=== PATIENT | female | born 1990 | race Caucasian/White ===

== ENCOUNTER 2018-02-23 12:50 | Emergency (ER) | payer OTHER, MEDICAID, SELFPAY ==
[2018-02-23 12:54] VITALS: BP 110/60; PULSE 87; RESP 16; TEMP 36.5; O2SAT 98
--- NOTE | 2018-02-23 13:20 | DI.RAD_ITS ---
SYMPTOMS/DIAGNOSIS: COUGH X 3 WEEKS PA AND LATERAL CHEST: The heart is normal in size. The lungs are clear. The mediastinal structures and pleura appear intact. CONCLUSION: Normal chest.
--- NOTE | 2018-02-23 13:23 | W.ED.GENAD ---
Discharge Plan Disposition Patient Disposition: HOME Condition: Fair Discharge Details Chief Complaint: RespSymp Clinical Impression: Cough Primary Care Provider: Quinn Rivero ED Provider: Tabitha Hilario Home Meds and New Rx's Prescriptions: New azithromycin 250 mg tablet See Label Instructions .ROUTE .COMPLEX Qty: 6 RF: 0 prednisone 20 mg tablet 40 mg PO DAILY Qty: 10 RF: 0 No Action No Known Home Meds RF: 0 Discharge Instructions Instructions: Acute Cough (ED) Additional Instructions: Encourage hydration. Please take prednisone and azithromycin as prescribed. Try to take the steroids in the morning and use may cause you to have difficulty sleeping at night. Even if symptoms improve please take the entire course. Please follow-up with primary care for reevaluation in 1 week if symptoms have not completely resolved. If you develop difficulty breathing, shortness of breath, fevers or other new/worsening symptoms please seek care urgently once again. Tylenol and/or ibuprofen as needed for discomfort Referrals: Quinn Rivero MD [Primary Care Provider] - Discharge Data Discharge Date/Time-TO BE ENTERED AT DEPARTURE: 02/23/18 14:23 Medical Decision Making Patient is a 27-year-old female presenting today with chief complaint of cough times 3 weeks. She reports the cough is progressive and worsening. Cough is worse at night. Cobblestoning was noted on exam. She is denying any congestion, rhinorrhea. No sore throat or ear pain. Patient is currently afebrile, vital signs within normal limits. She appears nontoxic. Patient is also endorsing some pleuritic chest pain particularly with cough. Denies any shortness of breath. Cough has been nonproductive. No GI upset. Patient has Mirena IUD placed. Lungs are clear on exam. Plan to obtain chest x-ray given the longevity of her cough. CXR reviewed by myself and radiologist with no acute cardiopulmonary process noted. Discussed findings with the patient. This is likely associated with inflammatory process and pleuritis. However, as the cough has been increasing and patient has been feeling more fatigued I feel that treating with antibiotics at this time would be appropriate. Patient will be treated with prednisone and azithromycin. Encourage hydration. She was given strict return precautions. Advised follow-up with primary care in 1 week for reevaluation. We discussed possible side effects to the medications. All of her questions and concerns were addressed and she is in agreement with this plan HPI General Mode of arrival: ambulatory. Date/Time Provider Initiated Documentation: 02/23/18 13:12. Limitations to Documentation: no limitations. Information obtained by: patient. History of Present Illness 27 year old F presents to the emergency department with the chief complaint of Cough, described as moderate, Quality is described as aching (Patient reports discomfort with cough), and is localized to the chest. Patient reports no radiation; denies radiation to back. Patient started experiencing this week(s) (3) and it has been constant (coughing worse at night). No relieving factors improve symptom(s), No exacerbating factors reported . Patient notes headaches (reports she can have ISABEL associated with coughing); denies cough, diaphoresis, fever/chills, loss of appetite, nausea/vomiting, rash and shortness of breath. Patient did receive the following treatments prior to arrival, none Related Data Home Medications Medication Instructions Recorded Confirmed Unknown [No Known Home Meds] 02/23/18 02/23/18 azithromycin See Label Instructions .ROUTE 02/23/18 .COMPLEX #6 tab prednisone 40 mg PO DAILY #10 tab 02/23/18 Previous Rx's Medication Instructions Recorded azithromycin See Label Instructions .ROUTE 02/23/18 .COMPLEX #6 tab prednisone 40 mg PO DAILY #10 tab 02/23/18 Allergies Allergy/AdvReac Type Severity Reaction Status Date / Time No Known Allergies Allergy Unverified 02/23/18 12:58 General Stated Complaint: RespSymp DARRYN: 4 Review of Systems Constitutional Reports as per HPI and Reports headache(s) ENT Denies otalgia, Reports headache(s), Denies hoarseness, Denies nasal congestion, Denies post nasal drip, Denies sinus pain, Denies sinus pressure and Denies sore throat Cardiovascular Reports as per HPI, Reports chest pain (only with coughing), Denies chest pain at rest, Denies chest pain with activity, Denies syncope, Denies pedal edema, Denies dyspnea and Denies dyspnea on exertion Respiratory Reports as per HPI, Reports cough, Denies hemoptysis, Reports pain with cough, Denies dyspnea and Denies dyspnea on exertion Gastrointestinal Denies change in bowel habits, Denies diarrhea, Denies nausea and Denies vomiting Genitourinary Denies system reviewed and no additional complaints, except as docu (denies change in urinary habits) Integumentary/Breasts Denies rash Neurologic Denies syncope and Reports headache(s) PFSH Family History Father No problems noted. Mother Essential hypertension Mental disorder Social History Smoking/Tobacco Use Status: Former Tobacco Use Exam Const General: cooperative, healthy appearing, comfortable, no acute distress, well developed and well groomed Nutritional Appearance: average body habitus and well nourished Orientation: alert and awake [facility] Head: normal to inspection, normocephalic and atraumatic Ears: hearing grossly normal bilaterally, external ears normal and TM's normal bilaterally General nose exam: external nose normal and nares normal Face and sinus: normal facial exam and sinuses nontender Mouth: oral mucosae normal, lip normal, tongue normal and no trismus Teeth and gingiva: dentition normal Throat: posterior oropharynx abnormal (cobblestoning noted), tonsils normal, uvula midline and no peritonsillar masses Eyes General: appearance normal, both eyes and all related structures Neck Neck: normal visual inspection and no lymphadenopathy Resp Effort & Inspection: normal respiratory effort, able to speak in complete sentences and no respiratory distress Auscultation: clear to auscultation bilaterally, no rales, no rhonchi and no wheezes Cardio Rate: regular rate Rhythm: regular rhythm Heart Sounds: S1 normal and S2 normal Skin General skin exam: no rashes or lesions noted Lesions: no lesions Rashes: no rashes Neuro General: alert and awake Cognition: normal cognition Speech: speech normal Gait: normal gait Extrem General: no pedal edema and no calf tenderness Psych Appearance: grossly normal and well kempt Mental Status: mental status grossly normal Speech and Movement: speech and movement normal Mood: congruent mood Course Vital Signs Temperature 36.5 C 02/23/18 12:54 Pulse 87 02/23/18 12:54 Respiratory Rate 16 02/23/18 12:54 Blood Pressure 110/60 02/23/18 12:54 Pulse Oximetry 98 02/23/18 12:54 Temperature 36.5 C 02/23/18 12:54 Temperature Source Skin 02/23/18 12:54 Pulse 87 02/23/18 12:54 Respiratory Rate 16 02/23/18 12:54 Respiratory Effort 02/23/18 13:04 Respiratory Depth Normal 02/23/18 13:04 Blood Pressure 110/60 02/23/18 12:54 Blood Pressure Position Sitting 02/23/18 12:54 Pulse Oximetry 98 02/23/18 12:54 Oxygen Delivery Method Room Air 02/23/18 12:54 Oxygen Flow Rate 0 02/23/18 12:54 Pain Level 2 02/23/18 12:54
--- NOTE | 2018-02-23 13:26 | ED.GENADUL_ITS ---
Discharge Plan Disposition Patient Disposition: HOME Condition: Fair Discharge Details Chief Complaint: RespSymp Clinical Impression: Cough Primary Care Provider: Quinn Rivero ED Provider: Tabitha Hilario Home Meds and New Rx's Prescriptions: New azithromycin 250 mg tablet See Label Instructions .ROUTE .COMPLEX Qty: 6 RF: 0 prednisone 20 mg tablet 40 mg PO DAILY Qty: 10 RF: 0 No Action No Known Home Meds RF: 0 Discharge Instructions Instructions: Acute Cough (ED) Additional Instructions: Encourage hydration. Please take prednisone and azithromycin as prescribed. Try to take the steroids in the morning and use may cause you to have difficulty sleeping at night. Even if symptoms improve please take the entire course. Please follow-up with primary care for reevaluation in 1 week if symptoms have not completely resolved. If you develop difficulty breathing, shortness of breath, fevers or other new/worsening symptoms please seek care urgently once again. Tylenol and/or ibuprofen as needed for discomfort Referrals: Quinn Rivero MD [Primary Care Provider] - Discharge Data Discharge Date/Time-TO BE ENTERED AT DEPARTURE: 02/23/18 14:23 Medical Decision Making Patient is a 27-year-old female presenting today with chief complaint of cough times 3 weeks. She reports the cough is progressive and worsening. Cough is worse at night. Cobblestoning was noted on exam. She is denying any congestion , rhinorrhea. No sore throat or ear pain. Patient is currently afebrile, vital signs within normal limits. She appears nontoxic. Patient is also endorsing some pleuritic chest pain particularly with cough. Denies any shortness of breath. Cough has been nonproductive. No GI upset. Patient has Mirena IUD placed. Lungs are clear on exam. Plan to obtain chest x-ray given the longevity of her cough. CXR reviewed by myself and radiologist with no acute cardiopulmonary process noted. Discussed findings with the patient. This is likely associated with inflammatory process and pleuritis. However, as the cough has been increasing and patient has been feeling more fatigued I feel that treating with antibiotics at this time would be appropriate. Patient will be treated with prednisone and azithromycin. Encourage hydration. She was given strict return precautions. Advised follow-up with primary care in 1 week for reevaluation. We discussed possible side effects to the medications. All of her questions and concerns were addressed and she is in agreement with this plan HPI General Mode of arrival: ambulatory . Date/Time Provider Initiated Documentation: 02/23/18 13:12 . Limitations to Documentation: no limitations . Information obtained by: patient . History of Present Illness 27 year old F presents to the emergency department with the chief complaint of Cough, described as moderate, Quality is described as aching (Patient reports discomfort with cough), and is localized to the chest. Patient reports no radiation; denies radiation to back. Patient started experiencing this week(s) (3) and it has been constant (coughing worse at night). No relieving factors improve symptom(s), No exacerbating factors reported . Patient notes headaches (reports she can have ISABEL associated with coughing); denies cough, diaphoresis, fever/chills, loss of appetite, nausea/vomiting, rash and shortness of breath. Patient did receive the following treatments prior to arrival, none Related Data Home Medications Medication Instructions Recorded Confirmed Unknown [No Known Home Meds] 02/23/18 02/23/18 azithromycin See Label Instructions .ROUTE 02/23/18 .COMPLEX #6 tab prednisone 40 mg PO DAILY #10 tab 02/23/18 Previous Rx's Medication Instructions Recorded azithromycin See Label Instructions .ROUTE 02/23/18 .COMPLEX #6 tab prednisone 40 mg PO DAILY #10 tab 02/23/18 Allergies Allergy/AdvReac Type Severity Reaction Status Date / Time No Known Allergies Allergy Unverified 02/23/18 12:58 General Stated Complaint: RespSymp DARRYN: 4 Review of Systems Constitutional Reports as per HPI and Reports headache(s) ENT Denies otalgia, Reports headache(s), Denies hoarseness, Denies nasal congestion , Denies post nasal drip, Denies sinus pain, Denies sinus pressure and Denies sore throat Cardiovascular Reports as per HPI, Reports chest pain (only with coughing), Denies chest pain at rest, Denies chest pain with activity, Denies syncope, Denies pedal edema, Denies dyspnea and Denies dyspnea on exertion Respiratory Reports as per HPI, Reports cough, Denies hemoptysis, Reports pain with cough, Denies dyspnea and Denies dyspnea on exertion Gastrointestinal Denies change in bowel habits, Denies diarrhea, Denies nausea and Denies vomiting Genitourinary Denies system reviewed and no additional complaints, except as docu (denies change in urinary habits) Integumentary/Breasts Denies rash Neurologic Denies syncope and Reports headache(s) PFSH Family History Father No problems noted. Mother Essential hypertension Mental disorder Social History Smoking/Tobacco Use Status: Former Tobacco Use Exam Const General: cooperative, healthy appearing, comfortable, no acute distress, well developed and well groomed Nutritional Appearance: average body habitus and well nourished Orientation: alert and awake [facility] Head: normal to inspection, normocephalic and atraumatic Ears: hearing grossly normal bilaterally, external ears normal and TM's normal bilaterally General nose exam: external nose normal and nares normal Face and sinus: normal facial exam and sinuses nontender Mouth: oral mucosae normal, lip normal, tongue normal and no trismus Teeth and gingiva: dentition normal Throat: posterior oropharynx abnormal (cobblestoning noted), tonsils normal, uvula midline and no peritonsillar masses Eyes General: appearance normal, both eyes and all related structures Neck Neck: normal visual inspection and no lymphadenopathy Resp Effort & Inspection: normal respiratory effort, able to speak in complete sentences and no respiratory distress Auscultation: clear to auscultation bilaterally, no rales, no rhonchi and no wheezes Cardio Rate: regular rate Rhythm: regular rhythm Heart Sounds: S1 normal and S2 normal Skin General skin exam: no rashes or lesions noted Lesions: no lesions Rashes: no rashes Neuro General: alert and awake Cognition: normal cognition Speech: speech normal Gait: normal gait Extrem General: no pedal edema and no calf tenderness Psych Appearance: grossly normal and well kempt Mental Status: mental status grossly normal Speech and Movement: speech and movement normal Mood: congruent mood Course Vital Signs Temperature 36.5 C 02/23/18 12:54 Pulse 87 02/23/18 12:54 Respiratory Rate 16 02/23/18 12:54 Blood Pressure 110/60 02/23/18 12:54 Pulse Oximetry 98 02/23/18 12:54 Temperature 36.5 C 02/23/18 12:54 Temperature Source Skin 02/23/18 12:54 Pulse 87 02/23/18 12:54 Respiratory Rate 16 02/23/18 12:54 Respiratory Effort 02/23/18 13:04 Respiratory Depth Normal 02/23/18 13:04 Blood Pressure 110/60 02/23/18 12:54 Blood Pressure Position Sitting 02/23/18 12:54 Pulse Oximetry 98 02/23/18 12:54 Oxygen Delivery Method Room Air 02/23/18 12:54 Oxygen Flow Rate 0 02/23/18 12:54 Pain Level 2 02/23/18 12:54
== END 2018-02-23 14:23 | disposition home or self-care (01) ==
PROVIDERS: Emergency Provider Physician Assistant; PCP Family Medicine
DX: R05 Cough (principal); R53.83 Other fatigue; R07.1 Chest pain on breathing
CPT/HCPCS: 99284; 71046

== ENCOUNTER 2018-05-28 07:56 | Emergency (ER) | payer OTHER, MEDICAID, SELFPAY ==
--- NOTE | 2018-05-28 08:02 | ED.GENADUL_ITS ---
Discharge Plan Disposition Patient Disposition: HOME Condition: Good Discharge Details Chief Complaint: Sorethroat Clinical Impression: Acute pharyngitis Primary Care Provider: Quinn Rivero ED Provider: Osmel Edward Home Meds and New Rx's Prescriptions: New penicillin V potassium 500 mg tablet 500 mg PO TID 10 Days Qty: 30 RF: 0 Discharge Instructions Instructions: Pharyngitis (ED) Additional Instructions: Home to rest, fluids, Tylenol as needed. 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 She presents with 1 day of acute sore throat and fever. Her exam is concerning for exudative pharyngitis, her rapid strep test is positive, she does not of any evidence of developing abscess. Given acetaminophen and penicillin & will prescribe her a course of same. She understands return precautions HPI General Mode of arrival: ambulatory . Date/Time Provider Initiated Documentation: 05/28/18 08:01 . Limitations to Documentation: no limitations . Information obtained by: patient . History of Present Illness 27 year old F presents to the emergency department with the chief complaint of Sore throat, described as moderate, Quality is described as aching, and is localized to the neck. Patient reports no radiation. Patient started experiencing this day(s) and it has been constant. No relieving factors improve symptom(s), No exacerbating factors reported . Patient notes denies nausea/vomiting. Related Data Home Medications Medication Instructions Recorded Confirmed penicillin V potassium 500 mg PO TID 10 Days #30 tab 05/28/18 Previous Rx's Medication Instructions Recorded penicillin V potassium 500 mg PO TID 10 Days #30 tab 05/28/18 Allergies Allergy/AdvReac Type Severity Reaction Status Date / Time No Known Allergies Allergy Unverified 05/28/18 08:12 General DARRYN: 4 Review of Systems Review of Systems 6 systems reviewed and otherwise negative PFSH Family History Father No problems noted. Mother Essential hypertension Mental disorder Social History Smoking/Tobacco Use Status: Current-Occasional Exam Narrative Exam Narrative: GEN: awake, alert, oriented 3. Pleasant, well groomed, interactive. HEAD: Normocephalic, atraumatic ENT: Mucous membranes moist, oropharynx erythematous tonsillar pillars, swelling, overlying exudate. Uvula midline, no asymmetry, External ear exam unremarkable, tympanic membranes clear EYES: PERRL, EOMI NECK: Full ROM, anterior lymphadenopathy CHEST/RESP: Nontender, clear to auscultation bilateral, no wheeze/rhonchi/rales CARDIOVASCULAR: RRR, no murmur, rub viviana. 2+ Rad pulse bilateral ABDOMEN: Soft, nontender, no mass. +Bowel sounds EXT: Full ROM, no edema, no rash Neuro: Grossly normal neurologic exam, conversant, interactive. Psych: Speech fluent, thoughts congruent, affect normal
[2018-05-28 08:05] VITALS: BP 108/63; PULSE 104; RESP 18; TEMP 38.4; O2SAT 95
[2018-05-28 08:18] VITALS: TEMP 38.4
[2018-05-28] MEDS: Penicillin V POTASSIUM 500 MG TAB PO (08:18)
[2018-05-28] MEDS: Acetaminophen 500 MG TAB 1000 MG PO (08:18)
== END 2018-05-28 08:28 | disposition home or self-care (01) ==
LOC: ER 08:26
PROVIDERS: Emergency Provider Emergency Medicine; PCP Family Medicine
DX: J02.9 Acute pharyngitis, unspecified (principal)
CPT/HCPCS: 87880; 99283

== ENCOUNTER 2018-08-13 19:47 | Emergency (ER) | payer OTHER, MEDICAID, SELFPAY ==
[2018-08-13 19:55] VITALS: BP 115/67; PULSE 80; RESP 16; TEMP 36.8; O2SAT 98
--- NOTE | 2018-08-13 20:29 | ED.GENADUL_ITS ---
Discharge Plan Disposition Patient Disposition: HOME Condition: Good Discharge Details Chief Complaint: Abd Prob Clinical Impression: Gastritis Primary Care Provider: Quinn Rivero ED Provider: Ronal Alfredo Home Meds and New Rx's Prescriptions: New sucralfate [Carafate] 1 gram tablet 1 gm PO QACHS Qty: 30 RF: 0 pantoprazole [Protonix] 40 mg tablet,delayed release (DR/EC) 40 mg PO BID Qty: 60 RF: 0 No Action Mirena 20 mcg/24 hr (5 years) intrauterine device 1 insert IY ONCE RF: 0 Discharge Instructions Instructions: Gastritis (ED) Additional Instructions: Please take medication as directed. Please avoid any spicy foods, tomato-based products, citrus-based products. If you notice any worsening of your symptoms, or any new symptoms such as vomiting, diarrhea, fever, chills, shortness of breath, chest pain, numbness, weakness, or fainting , please return immediately to the emergency department for reevaluation. Please follow up with your primary care provider as soon as possible for reassessment and reevaluation. As always, it was a pleasure participating in your medical care today. Referrals: Quinn Rivero MD [Primary Care Provider] - Medical Decision Making This is a pleasant 27-year-old female with no significant past medical history who presents for mild left upper Epigastric pain for the last 4 days. He is mildly crampy. Worse with eating and moving. She has no pain at McBurney's point, negative Arellano sign, no signs or symptoms clinically consistent with acute appendicitis or gallbladder etiology. Bedside limited portable ultrasound demonstrated normal-appearing gallbladder with no significant stones, sludge, and a negative sonographic Arellano sign. Signs and symptoms are clinically consistent with mild acute gastritis. No clear clinical indication for CT imaging at this time. Will give GI cocktail, mild Lidoderm patch, and reassess. Patient does not want any laboratory workup at this time which he feels reasonable. 9:36 PM Patient's abdominal symptoms have notably improved with the GI cocktail. Did discuss potential further evaluation with labs and imaging and the patient would like to hold off on this for the time being. I do feel that this is reasonable. With her improvement of her symptoms I feel that gastritis is most likely the cause of her symptomatology. We will give Protonix and Carafate for home use, recommend avoidance of spicy foods tomato-based products, and citric-based foods. System patient's urinalysis has returned, and she has no symptoms of dysuria or increased urinary frequency, WBCs are well within normal limits, small leuk es terase, and epithelial cells are present. I feel her symptoms are inconsistent with a notable urinary tract infection. Additionally her clinical symptomatology is not consistent with UTI. Patient will be discharged home, close follow-up as well as recommendations for advice was to return. I have extensively reviewed the treatment plan and discharge instructions with the patient. I have addressed all patient concerns at this time. The patient was made aware of what symptoms to monitor for that would warrant a return to the emergency department. Discussed the plan with the patient, they demonstrate verbal understanding and agreement with our assessment and plan at this time. HPI General Date/Time Provider Initiated Documentation: 08/13/18 19:59 . HPI Narrative: This is a 27-year-old female with no significant past medical history who presents today for evaluation of epigastric pain. He has been present for the last 3-4 days. She describes it is mildly achy, it comes and goes in severity, she has some mild cramps associated with it in the epigastric region. It is worsened with food movement. She has no associated dysuria, hematuria, flank pain, lower abdominal pain, right upper quadrant pain, vomiting, or constipation. She had 1 or 2 episodes of loose stool earlier however this is since resolved. She denies any hematochezia melena or acholic stool. She has no other modifying factors or other complaints. She does admit to occasional notable pasta sauce use and intake, but denies any significant spicy foods. She denies any significant alcohol intake. She denies any previous abdominal surgeries aside for 2 C-sections. Related Data Home Medications Medication Instructions Recorded Confirmed levonorgestrel 20 mcg/24 hours (5 1 insert IY ONCE 06/11/18 08/13/18 yrs) 52 mg intrauterine device pantoprazole [Protonix] 40 mg PO BID #60 tab 08/13/18 sucralfate [Carafate] 1 gm PO QACHS #30 tab 08/13/18 Previous Rx's Medication Instructions Recorded pantoprazole [Protonix] 40 mg PO BID #60 tab 08/13/18 sucralfate [Carafate] 1 gm PO QACHS #30 tab 08/13/18 Allergies Allergy/AdvReac Type Severity Reaction Status Date / Time No Known Allergies Allergy Verified 08/13/18 20:07 General Stated Complaint: Abd Prob DARRYN: 3 Review of Systems Review of Systems All systems reviewed & are unremarkable except as noted in HPI and below PFSH Medical History IUD surveillance (Acute) Anxiety (Acute 04/30/14) Surgical History Previous section (Acute 03/30/15) History of hernia repair (Chronic) Social History Smoking/Tobacco Use Status: Former Tobacco Use Drug use: Never In current or past relationships, have you been: threatened Do you feel safe at home: Yes Do you feel safe in your relationship?: Yes Additional Social history: in past relationship Female Reproductive History Menstrual control method: progestin IUCD (Inserted post November 2015) History History 2 Para 2 Hx # Term Pregnancies Multiple births Hx # Pregnancies Ectopic pregnancies AB induced Hx Number of Living Children AB spontaneous Exam Narrative Exam Narrative: 1.Const: Well-nourished, Well-developed, appearing stated age 2.Eyes: PERRL, no conjunctival injection, and symmetrical lids. 3.ENT: Atraumatic external nose and ears. Moist MM. Neck: Symmetric, trachea midline, No thyromegaly. 4.CVS: +S1/S2, No murmurs or gallops. Peripheral pulses 2+ and equal in all extremities. Brisk capillary refill in all extremities. 5.RESP: Unlabored respiratory effort. Clear to auscultation bilaterally. No wheezes rales or rhonchi 6.GI: Soft, Nontender/Nondistended, No hepatosplenomegaly. No guarding or rebound. Minimal and frequent requiring no pain at McBurney's point, negative Arellano sign. Bedside portable limited ultrasound demonstrated a gallbladder wall thickness of 2-3 mm. No evidence of significant sludge or other significant gallstone abnormalities. 7.MSK: Normocephalic/Atraumatic, Extremities w/o deformity or ttp No cyanosis or clubbing, Normal movement of all extremities 8.Skin: Warm, Dry. No rashes or lesions. 9.Neuro: director revenue II-XII grossly intact. Sensation grossly intact, no focal neurologic deficits. 10.Psych: (AAO) x3. Appropriate mood and affect Course Vital Signs Temperature 36.8 C 08/13/18 19:55 Pulse 80 08/13/18 19:55 Respiratory Rate 16 08/13/18 19:55 Blood Pressure 115/67 08/13/18 19:55 Pulse Oximetry 98 08/13/18 19:55 Temperature 36.8 C 08/13/18 19:55 Temperature Source Temporal Artery Scan 08/13/18 19:55 Pulse 80 08/13/18 19:55 Respiratory Rate 16 08/13/18 19:55 Respiratory Effort 08/13/18 19:55 Blood Pressure 115/67 08/13/18 19:55 Pulse Oximetry 98 08/13/18 19:55 Oxygen Delivery Method Room Air 08/13/18 19:55 Oxygen Flow Rate 0 08/13/18 19:55 Pain Level 7 08/13/18 20:03
[2018-08-13] MEDS: Lidocaine 5% Patch 1 PATCH TP (20:31)
[2018-08-13 21:04] LABS: Bilirubin Negative (Negative); Blood Negative (Negative); Clarity Cloudy; Glucose Negative (Negative); Ketones Negative (Negative); Leukocyte Esterase Small (Negative); Nitrite Negative (Negative)
[2018-08-13] MEDS: Sucralfate 1 GM TAB PO (21:17)
[2018-08-13] MEDS: Pantoprazole 40 MG TABCR PO (21:17)
[2018-08-13 21:23] LABS: Bacteria Few HPF (Negative); C & S Indicated? Yes; Casts Negative LPF (Negative); Crystals Negative HPF (Negative); Epithelial Cells Few HPF (Negative); Mucus Negative (Negative); Other Cells Negative (Negative); RBC Negative (0-2)
[2018-08-13 21:51] VITALS: BP 116/62; PULSE 72; RESP 16; O2SAT 96
== END 2018-08-13 21:49 | disposition home or self-care (01) ==
PROVIDERS: Emergency Provider Student in an Organized Health Care Education/Training Program; PCP Family Medicine
DX: K52.9 Noninfective gastroenteritis and colitis, unspecified (principal)
CPT/HCPCS: 81025; 99283; 81003; 81015; 87086

== ENCOUNTER 2018-09-01 16:05 | Outpatient (CLI) | payer MEDICAID, SELFPAY ==
[2018-09-01 17:51] LABS: ALT 28 U/L (12-78); AST 17 U/L (15-37); Albumin 3.9 g/dL (3.4-5.0); Alkaline Phosphatase 86 U/L (46-116); Anion Gap 9.4 mmol/L (3-11); BUN 18 mg/dL (7-18); Bilirubin, Total 0.2 mg/dL (0.2-1.0); CO2 26.6 mmol/L (21.0-32.0); CREATININE 0.67 mg/dL (0.55-1.02); Calcium 8.6 mg/dL (8.5-10.1); Chloride 102 mmol/L (98-107); Glucose 85 mg/dL (70-100); Potassium 4.2 mmol/L (3.5-5.1); Sodium 138 mmol/L (136-145); Total Protein 8.2 g/dL (6.4-8.2)
== END 2018-09-01 16:25 ==
PROVIDERS: PCP Family Medicine; Visit Provider Family Medicine
DX: R10.13 Epigastric pain (principal)
CPT/HCPCS: 36415; 80053

== ENCOUNTER 2018-09-10 16:23 | Outpatient (REF) | payer MEDICAID, SELFPAY ==
--- NOTE | 2018-09-10 16:00 | PAPFT_PTH ---
PATIENT: Sofi Christianson LOC: [facility] U#:[id number] AGE/SX: 28/F ROOM: RE09/10/[address]: ANNE MARIE Sage : 1990 BED: DIS: 09/10/2018 SPEC #: [id number] RECD: 09/10/18 17:59 STATUS: SARAH REQ #: [id number] LAYLA: 09/10/18 16:[address]: Annalisa Sams DEPT: [facility] Cytology RECD BY: Ita Cardenas ENTERED: 09/10/18 17:59 SP TYPE: PAPFT OTHR DR: Quinn Rivero MD Tissues: 1 - CX/ENDOCX FOR PAP SMEARS Procedures: PAP THIN PREP/[facility]VM Screening Comments: [id number]
== END 2018-09-10 16:43 ==
LOC: LBN 16:23
PROVIDERS: PCP Family Medicine; Visit Provider Nurse Practitioner Family
DX: Z12.4 Encounter for screening for malignant neoplasm of cervix (principal)
CPT/HCPCS: 88142

== ENCOUNTER 2019-06-04 10:21 | Emergency (ER) | payer MEDICAID, SELFPAY ==
[2019-06-04 10:32] VITALS: BP 106/60; PULSE 118; RESP 20; TEMP 36.7; O2SAT 96
[2019-06-04] MEDS: Ondansetron O.D.T. 4 MG TABEF PO (10:48)
--- NOTE | 2019-06-04 10:51 | ED.GENADUL_ITS ---
Discharge Plan Disposition Patient Disposition: HOME Condition: Stable Discharge Details Chief Complaint: Nausea/Vomit/Diar Clinical Impression: Acute streptococcal pharyngitis Primary Care Provider: Quinn Rivero ED Provider: Shyam Huerta Home Meds and New Rx's Prescriptions: New amoxicillin 500 mg tablet 500 mg PO BID Qty: 20 RF: 0 ondansetron 4 mg tablet,disintegrating 4 mg PO Q8H PRN (Reason: nausea and vomiting) Qty: 30 RF: 0 Continued Mirena 20 mcg/24 hr (5 years) intrauterine device 1 insert IY ONCE RF: 0 Discharge Instructions Instructions: Pharyngitis (ED) Additional Instructions: if not better by friday see your primary care provider take 1000mg tylenol and 600mg ibuprofen every 6 hours for pain as needed if you feel more ill, have difficulty breathing or inability to swallow liquids return to the emergency department Medical Decision Making 28 yo female with no chronic medical problems comes in with cc of sore throat since yesterday and today nausea with bod yaches. NO severe body pain, has had subjective fevers. On exam she has erythema with exudates of posterior pharynx, midline uvula, no pain over hyoid or restricted neck movements, no findings to suggest rpa, remote pilot operator or epiglotitis. Her exam is consistent with pharyngitis, will test for strep strep test positive, will start on abx and advised f/u with pcp next week if not improving and return precautions given Differential Diagnosis Differential Diagnosis: strep pharyngitis, influenza, HPI General Mode of arrival: ambulatory . Date/Time Provider Initiated Documentation: 06/04/19 10:39 . Limitations to Documentation: no limitations . Information obtained by: patient . History of Present Illness 28 year old F presents to the emergency department with the chief complaint of sore throat, described as moderate, Patient started experiencing this day(s) (1) and it has been constant. No relieving factors improve symptom(s), No exacerbating factors reported . Patient did receive the following treatments prior to arrival, none Related Data Home Medications Medication Instructions Recorded Confirmed levonorgestrel 20 mcg/24 hours (5 1 insert IY ONCE 06/11/18 06/04/19 yrs) 52 mg intrauterine device amoxicillin 500 mg PO BID #20 tab 06/04/19 ondansetron 4 mg PO Q8H PRN #30 tab 06/04/19 Previous Rx's Medication Instructions Recorded amoxicillin 500 mg PO BID #20 tab 06/04/19 ondansetron 4 mg PO Q8H PRN #30 tab 06/04/19 Allergies Allergy/AdvReac Type Severity Reaction Status Date / Time No Known Allergies Allergy Verified 06/04/19 10:37 General Stated Complaint: Nausea/Vomit/Diar DARRYN: 3 Review of Systems All systems reviewed & are unremarkable except as noted in HPI and below Constitutional Constitutional: Denies weakness ENT Ears, Nose, Mouth, and Throat: Denies change in voice Cardiovascular Cardiovascular: Denies chest pain and Denies dyspnea Respiratory Respiratory: Denies cough and Denies dyspnea Gastrointestinal Gastrointestinal: Denies abdominal pain and Denies nausea Musculoskeletal Musculoskeletal: Denies joint swelling Neurologic Neurologic: Denies weakness [facility] Surgical History (Updated 08/13/18 @ 20:07 by Jillian Robbins) History of hernia repair (Chronic) Previous section (Acute 03/30/15) Social History Smoking/Tobacco Use Status: Never Drug use: Never Substance use type: does not use In current or past relationships, have you been: threatened Do you feel safe at home: Yes Do you feel safe in your relationship?: Yes Additional Social history: in past relationship Female Reproductive History Menstrual control method: progestin IUCD (Inserted post November 2015) History History 2 Para 2 Hx # Term Pregnancies Multiple births Hx # Pregnancies Ectopic pregnancies AB induced Hx Number of Living Children AB spontaneous Exam Const General: no acute distress Orientation: alert HENMT Head: normal to inspection Ears: external ears normal General nose exam: external nose normal Mouth: moist mucous membranes Eyes General: appearance normal, both eyes and all related structures Neck Neck: normal visual inspection Resp Effort & Inspection: normal respiratory effort and able to speak in complete sentences Cardio Rate: regular rate Skin General skin exam: no rashes or lesions noted Neuro General: alert and oriented x3 Extrem General: normal to inspection Psych Mental Status: mental status grossly normal Course Vital Signs Vital signs: Vital Signs Temperature 36.7 C 06/04/19 10:32 Pulse 118 H 06/04/19 10:32 Respiratory Rate 20 06/04/19 10:32 Blood Pressure 106/60 06/04/19 10:32 Pulse Oximetry 96 06/04/19 10:32 Temperature 36.7 C 06/04/19 10:32 Temperature Source Skin 06/04/19 10:32 Pulse 118 H 06/04/19 10:32 Respiratory Rate 20 06/04/19 10:32 Respiratory Effort Non-Labored 06/04/19 10:38 Blood Pressure 106/60 06/04/19 10:32 Blood Pressure Position Sitting 06/04/19 10:32 Pulse Oximetry 96 06/04/19 10:32 Oxygen Delivery Method Room Air 06/04/19 10:32 Oxygen Flow Rate 0 06/04/19 10:32 Pain Level 9 06/04/19 10:32
== END 2019-06-04 11:04 | disposition home or self-care (01) ==
LOC: ER 10:56
PROVIDERS: Emergency Provider Emergency Medicine; PCP Family Medicine
DX: R11.2 Nausea with vomiting, unspecified (principal); J02.0 Streptococcal pharyngitis
CPT/HCPCS: 87880; 99283

== ENCOUNTER 2019-09-15 20:25 | Outpatient (REF) | payer MEDICAID, SELFPAY ==
[2019-09-17 14:28] LABS: Chlamydia Result Negative (Negative); GC Result Negative (Negative)
== END 2019-09-15 20:45 ==
LOC: LBN 20:25
PROVIDERS: PCP Family Medicine; Visit Provider Nurse Practitioner Family
DX: N95.2 Postmenopausal atrophic vaginitis (principal); Z11.3 Encounter for screening for infections with a predominantly sexual mode of transmission
CPT/HCPCS: 87491; 87591; 87480; 87510; 87660

== ENCOUNTER 2019-12-28 13:04 | Outpatient (CLI) | payer MEDICAID, SELFPAY ==
[2019-12-30 14:40] LABS: SARS-CoV-2 RNA Undetected (Undetected); SARS-CoV-2 Specimen Source Nasopharynx
== END 2019-12-28 13:24 ==
PROVIDERS: PCP Family Medicine; Visit Provider Family Medicine
DX: Z11.59 Encounter for screening for other viral diseases (principal); R11.0 Nausea; R19.7 Diarrhea, unspecified
CPT/HCPCS: U0003

== ENCOUNTER 2020-01-13 15:19 | Outpatient (REF) | payer MEDICAID, SELFPAY | END 2020-01-13 15:39 | LOC: LBN 15:19 | PROVIDERS: Visit Provider Family Medicine | DX: J02.9 Acute pharyngitis, unspecified (principal) | CPT/HCPCS: 87081 ==

== ENCOUNTER 2020-09-04 10:52 | Outpatient (REF) | payer MEDICAID, SELFPAY ==
--- NOTE | 2020-09-04 10:30 | PAPFT_PTH ---
PATIENT: Sofi Christianson LOC: [facility] U#:[id number] AGE/SX: 30/F ROOM: RE09/04/[address]: ANNE MARIE Sage : 1990 BED: DIS: 09/04/2020 SPEC #: [id number] RECD: 09/04/20 12:51 STATUS: SARAH REQ #: [id number] LAYLA: 09/04/20 10:[address]: Annalisa Sams DEPT: [facility] Cytology RECD BY: Ita Cardenas ENTERED: 09/04/20 12:51 SP TYPE: PAPFT AJ DR: Gracy Augustin, PhD FORENSIC ACCOUNTANT Tissues: 1 - CX/ENDOCX FOR PAP SMEARS Procedures: PAP THIN PREP/[facility] Screening Comments: [id number]
== END 2020-09-04 10:53 | disposition home or self-care (01) ==
LOC: LBN 10:52
PROVIDERS: PCP Nurse Practitioner; Visit Provider Nurse Practitioner Family
DX: Z12.4 Encounter for screening for malignant neoplasm of cervix (principal)
CPT/HCPCS: 88142

== ENCOUNTER 2020-09-19 09:54 | Outpatient (CLI) | payer MEDICAID, SELFPAY ==
[2020-09-20 13:31] LABS: COVID-19 RT-PCR UVMMC Result Negative (Negative)
== END 2020-09-19 09:55 | disposition home or self-care (01) ==
PROVIDERS: PCP Nurse Practitioner; Visit Provider Nurse Practitioner
DX: Z20.822 Contact with and (suspected) exposure to COVID-19 (principal)
CPT/HCPCS: U0003

== ENCOUNTER 2020-09-25 19:12 | Outpatient (REF) | payer MEDICAID, SELFPAY ==
[2020-09-27 13:07] LABS: COVID-19 RT-PCR UVMMC Result Negative (Negative)
== END 2020-09-25 19:13 | disposition home or self-care (01) ==
LOC: LBN ADD 19:12
PROVIDERS: PCP Nurse Practitioner; Visit Provider Nurse Practitioner Family
DX: Z20.822 Contact with and (suspected) exposure to COVID-19 (principal)
CPT/HCPCS: U0003

== ENCOUNTER 2020-10-04 08:53 | Emergency (ER) | payer MEDICAID, SELFPAY ==
[2020-10-04 09:34] VITALS: BP 104/69; PULSE 85; RESP 18; TEMP 37.1; O2SAT 97
--- NOTE | 2020-10-04 09:45 | DI.RAD_ITS ---
Exam(s) XR PORTABLE CHEST AP EXAM: XR PORTABLE CHEST AP CLINICAL HISTORY: cough. TECHNIQUE: 2D digital imaging was performed. COMPARISON: CR XR CHEST 2V PA LATERAL from 02/23/2018 FINDINGS: Heart size is normal. The mediastinum is not widened. Lungs are clear. No infiltrates nor obvious pleural effusions. IMPRESSION: No acute pulmonary findings on this single AP portable view of the chest. DATA REPOSITORY: RADIATION DOSE DELIVERED: All CT scans at this facility use at least one of these dose optimization techniques: automated exposure control; mA and/or kV adjustment per patient size (includes targeted e xams where dose is matched to clinical indication); or iterative reconstruction.
--- NOTE | 2020-10-04 11:25 | W.ED.GENAD ---
Discharge Plan Disposition Patient Disposition: HOME Condition: Stable Discharge Details Clinical Impression: Bronchitis Primary Care Provider: Gracy Augustin ED Provider: Harinder Dobbs Home Meds and New Rx's Prescriptions: Continued Mirena 20 mcg/24 hr (5 years) intrauterine device 1 insert IY ONCE RF: 0 albuterol sulfate 90 mcg/actuation HFA aerosol inhaler 2 puff inhalation Q6H PRN (Reason: shortness of breath or wheezing) Qty: 8.5 RF: 0 benzonatate [Tessalon Perles] 100 mg capsule 100 mg PO BID PRN (Reason: cough) Qty: 14 RF: 0 escitalopram oxalate 20 mg tablet 20 mg PO DAILY Qty: 90 RF: 11 Discharge Instructions Instructions: Acute Bronchitis (ED) Additional Instructions: X-ray is unremarkable for acute pneumonia. Vital signs are within normal limit. Continue with the Delsym and albuterol, be sure not to overuse the albuterol. Cjjz-hki-oerarma medications such as nasal steroid, decongestant, antihistamine are all beneficial for symptomatic control. [id number]-niwbcqv Tylenol and/or Motrin as directed for discomfort. Please watch for new or worsening symptoms and return to the ER for any concerns. I do recommend that you contact your primary care provider today or tomorrow to make them aware of your ongoing symptoms and potential need for outpatient reevaluation Medical Decision Making 30-year-old female, history of anxiety depression, previously diagnosed with bronchitis presents to the ER requesting a chest x-ray reporting that her symptoms are getting any better. Symptoms have been present since September 19 when her children have similar symptoms. She reports primarily dry cough, nasal congestion, runny nose, cough at night is worse causing her not to sleep well. She has already had 2 negative Covid swabs. 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 Clinically patient appears well, nontoxic, afebrile, pulse in the 80s, temperature 37.1, O2 sat 97% on room air, lungs clear to auscultation. Occasional mild dry cough noted. Discussed options, patient would prefer not to have a third Covid swab. Given she is already vaccinated, has had 2 - test thus far, I believe this to be reasonable. There is no clear indication for breathing treatment, antibiotic therapy, steroids, etc. Will obtain chest x-ray and reassess Chest x-ray negative per radiology Discussed x-ray findings with patient. She is relieved, has no additional questions or concerns. Recommend continuing her albuterol, and careful not to overuse. We will also continue her wkxn-ldr-sdwlgch cough medication, will begin taking Flonase and I am recommending oral antihistamine and decongestant. I explained to her that a viral cough can last for weeks if not months. Patient has no additional questions or concerns and is comfortable with this plan. Medical Records Medical records reviewed: Yes I reviewed the patient's medical records. Imaging Data Radiologic Study: Attestation: I personally reviewed and interpreted this imaging study as follows: Imaging: X-Ray My impression: Chest x-ray HPI General Mode of arrival: ambulatory. Date/Time Provider Initiated Documentation: 10/04/20 08:54. Limitations to Documentation: no limitations. Information obtained by: patient. HPI Narrative: This is a 30-year-old female, past medical history of anxiety, depression, smoker up until September 19 when she became ill. Patient states that she received her Covid vaccine in July. Around September 19 she developed a dry cough, nasal congestion, both of her children had similar symptoms. Her children's symptoms have resolved but hers are progressing and worsening. She reports that she has been evaluated by her primary care provider in the walk-in clinic. She was told that she has bronchitis, was initially using Tessalon Perles and an albuterol inhaler. Albuterol was helping but does not believe Tessalon was helping. Was told to take Delsym and to use Flonase. She has been tested negative for Covid twice. She denies recent travel. Denies fever, chest pain, abdominal pain, change in bowel or bladder function, skin rash, pain or swelling in her legs, history of DVT or PE. She went to work today and the nurse at work recommended she come to the ER for a chest x-ray to rule out any potential pneumonia. Related Data Home Medications Medication Instructions Recorded Confirmed levonorgestrel 20 mcg/24 hours (6 1 insert IY ONCE 06/11/18 10/04/20 yrs) 52 mg intrauterine device escitalopram oxalate 20 mg tablet 20 mg PO DAILY #90 tab-cap 06/07/20 10/04/20 albuterol sulfate 90 mcg/actuation 2 puff INHALATION Q6H PRN #8.5 g 09/25/20 10/04/20 aerosol inhaler benzonatate 100 mg capsule 100 mg PO BID PRN #14 cap 09/25/20 10/04/20 Previous Rx's Medication Instructions Recorded escitalopram oxalate 20 mg tablet 20 mg PO DAILY #90 tab-cap 06/07/20 albuterol sulfate 90 mcg/actuation 2 puff INHALATION Q6H PRN #8.5 g 09/25/20 aerosol inhaler benzonatate 100 mg capsule 100 mg PO BID PRN #14 cap 09/25/20 Allergies Allergy/AdvReac Type Severity Reaction Status Date / Time No Known Allergies Allergy Verified 10/04/20 09:42 General Stated Complaint: RespSymp DARRYN: 4 Review of Systems Constitutional Constitutional: Denies fever(s) and Denies headache(s) ENT Ears, Nose, Mouth, and Throat: Denies headache(s) and Reports sore throat (After coughing) Cardiovascular Cardiovascular: Denies chest pain and Denies dyspnea Respiratory Respiratory: Reports cough and Denies dyspnea Gastrointestinal Gastrointestinal: Denies abdominal pain, Denies nausea and Denies vomiting Musculoskeletal Musculoskeletal: Denies back pain Integumentary/Breasts Skin/Breast: Reports rash Neurologic Neurologic: Denies headache(s) [facility] Medical History Anxiety (04/30/14) IUD surveillance Surgical History History of hernia repair Previous section (03/30/15) Family History Mother Essential hypertension Mental disorder Breast cancer Social History Smoking/Tobacco Use Status: Former Tobacco Use Smoking risk assessment performed?: Yes Drug use: Never Substance use type: does not use In current or past relationships, have you been: threatened Do you feel safe at home: Yes Do you feel safe in your relationship?: Yes Additional Social history: in past relationship Female Reproductive History Menstrual control method: progestin IUCD (Inserted post November 2015) History History 2 Para 2 Hx # Term Pregnancies Multiple births Hx # Pregnancies Ectopic pregnancies AB induced Hx Number of Living Children AB spontaneous Exam Const General: cooperative, healthy appearing, comfortable and no acute distress Orientation: alert and awake HENMT Head: normal to inspection, normocephalic and atraumatic General nose exam: nasal discharge clear bilaterally Face and sinus: normal facial exam Mouth: oral mucosae normal and moist mucous membranes Throat: posterior oropharynx normal Eyes General: appearance normal, both eyes and all related structures Conjunctivae: conjunctivae normal Neck Neck: normal visual inspection, full ROM, no lymphadenopathy, no meningeal signs, trachea midline, supple and nontender Resp Effort & Inspection: normal respiratory effort, able to speak in complete sentences and cough Quality of cough: dry (mild, occasional) Auscultation: clear to auscultation bilaterally Cardio Rate: regular rate Rhythm: regular rhythm Skin General skin exam: no rashes or lesions noted Neuro General: patient alert, patient awake, moves all extremities and no focal motor deficits Cognition: normal cognition Speech: speech normal Gait: normal gait Sensory Exam: no sensory deficits noted Extrem General: normal to inspection, full ROM, capillary refill normal, no pedal edema and no calf tenderness Psych Appearance: grossly normal Mental Status: mental status grossly normal Course Vital Signs Vital signs: Vital Signs Temperature 37.1 C 10/04/20 09:34 Pulse 85 10/04/20 09:34 Respiratory Rate 18 10/04/20 09:34 Blood Pressure 104/69 10/04/20 09:34 Pulse Oximetry 97 10/04/20 09:34 Temperature 37.1 C 10/04/20 09:34 Temperature Source Oral 10/04/20 09:34 Pulse 85 10/04/20 09:34 Respiratory Rate 18 10/04/20 09:34 Respiratory Effort Non-Labored 10/04/20 09:44 Respiratory Depth Normal 10/04/20 09:44 Blood Pressure 104/69 10/04/20 09:34 Blood Pressure Position Sitting 10/04/20 09:34 Pulse Oximetry 97 10/04/20 09:34 Oxygen Delivery Method Room Air 10/04/20 09:34 Oxygen Flow Rate 0 10/04/20 09:34 Pain Level 3 10/04/20 09:34
== END 2020-10-04 11:31 | disposition home or self-care (01) ==
PROVIDERS: Emergency Provider Physician Assistant; PCP Nurse Practitioner
DX: J20.9 Acute bronchitis, unspecified (principal)
CPT/HCPCS: 99283; 71045; 99282

== ENCOUNTER 2021-09-03 19:12 | Outpatient (REF) | payer MEDICAID, SELFPAY ==
[2021-09-05 12:00] LABS: COVID-19 RT-PCR UVMMC Result Negative (Negative)
== END 2021-09-03 19:13 | disposition home or self-care (01) ==
LOC: LBN 19:12
PROVIDERS: PCP Nurse Practitioner; Visit Provider Physician Assistant
DX: J02.9 Acute pharyngitis, unspecified (principal); Z20.822 Contact with and (suspected) exposure to COVID-19
CPT/HCPCS: U0003; 87070

== ENCOUNTER 2021-12-10 15:02 | Outpatient (REF) | payer MEDICAID, SELFPAY ==
--- NOTE | 2021-12-10 13:00 | PAPFT_PTH ---
PATIENT: Sofi Christianson LOC: [facility] U#:[id number] AGE/SX: 31/F ROOM: RE12/10/[address]: ANNE MAIRE Sage : 1990 BED: DIS: 12/10/2021 SPEC #: [id number] RECD: 12/10/21 18:53 STATUS: SARAH REQ #: [id number] LAYLA: 12/10/21 13:[address]: Annalisa Sams DEPT: [facility] Cytology RECD BY: Ita Cardenas ENTERED: 12/10/21 18:54 SP TYPE: PAPFT AJ DR: Gracy Augustin, PhD ACCOUNT MANAGER Tissues: 1 - CX/ENDOCX FOR PAP SMEARS Procedures: PAP THIN PREP/[facility] Screening Comments: [id number]
[2021-12-12 14:00] LABS: Chlamydia Result Negative (Negative); GC Result Negative (Negative)
== END 2021-12-10 15:03 | disposition home or self-care (01) ==
LOC: LBN 15:02
PROVIDERS: PCP Nurse Practitioner; Visit Provider Nurse Practitioner Family
DX: Z11.3 Encounter for screening for infections with a predominantly sexual mode of transmission (principal); Z12.4 Encounter for screening for malignant neoplasm of cervix
CPT/HCPCS: 87491; 87591; 88142

== ENCOUNTER 2022-03-30 22:27 | Emergency (ER) | payer MEDICAID, SELFPAY ==
[2022-03-30 22:34] VITALS: BP 123/63; PULSE 80; RESP 16; TEMP 36.7; O2SAT 98
--- NOTE | 2022-03-30 22:49 | ED.GENADUL_ITS ---
Discharge Plan Disposition Patient Disposition: HOME Condition: Stable Discharge Details Clinical Impression: Headache Primary Care Provider: Gracy Augustin ED Provider: Shyam Huerta Home Meds and New Rx's Prescriptions: Continued Mirena 20 mcg/24 hr (5 years) intrauterine device 1 insert IY ONCE Label Comments: Inserted November 2015 mirtazapine 15 mg tablet 15 mg PO QHS PRN Discharge Instructions Instructions: General Headache (ED) Additional Instructions: you can take 1000mg tylenol and 600mg ibuprofen every 6 hours as needed follow up with your primary care provider in 1-2 weeks if you feel more ill, have severe worsening pain or persistent vomiting return to the emergency department Medical Decision Making 31 yo female who denies chronic medical problems though does get headaches occasionally that resolve with tylenol comes in with headache. 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 She denies any falls or trauma, no fevers, chills or n/v and felt well during the day prior to the headache. She took 500mg tylenol without relief and came here. She denies radiation of the pain, weakness,slurred speech or vision changes. She arrives stable speaking in full sentences. She is caox4, cn ii-xii intact and no focal motor or sensation deficits, nih of 0 and no neck stiffness or meningismus. She localizes the pain across the forehead and states some in the posterior head. Suspect tension headache vs migraine, will treat with compazine and toradol and reassess. No fevers or meningismus so doubt corporate legal assistant infection. Pain was not thunderclap in description so doubt hemorrhage and will defer ct unless pain not improved or worsening after reassessment. pt feels significantly better and requesting d/c, labs show no significant abnormalities and her exam remains unchanged without concerning deficits or findings. Suspect tension headache vs migraine, advised to f/u with pcp and return precautions given Differential Diagnosis Differential Diagnosis: migraine, tension headache Lab Data Lab results reviewed: Yes I reviewed the patient's lab results. HPI General Mode of arrival: ambulatory . Date/Time Provider Initiated Documentation: 03/30/22 22:27 . Limitations to Documentation: no limitations . Information obtained by: patient . History of Present Illness 31 year old F presents to the emergency department with the chief complaint of headache, described as moderate, Quality is described as aching, and is localized to the head. Patient reports no radiation. Patient started experiencing this hour(s) (2) and it has been constant. No relieving factors improve symptom(s), No exacerbating factors reported . Patient notes no other symptoms.. Related Data Home Medications Medication Instructions Recorded Confirmed levonorgestrel 20 mcg/24 hours (8 1 insert intrauterine ONCE 06/11/18 03/30/22 yrs) 52 mg intrauterine device (Mirena) mirtazapine 15 mg tablet 15 mg PO QHS PRN 12/10/21 03/30/22 Allergies Allergy/AdvReac Type Severity Reaction Status Date / Time No Known Allergies Allergy Verified 03/30/22 22:37 General Stated Complaint: Headache DARRYN: 3 Review of Systems All systems reviewed & are unremarkable except as noted in HPI and below Constitutional Constitutional: Denies chills, Denies fever(s) and Denies weakness Eyes Eyes: Denies loss of vision Cardiovascular Cardiovascular: Denies chest pain and Denies dyspnea Respiratory Respiratory: Denies cough and Denies dyspnea Gastrointestinal Gastrointestinal: Denies abdominal pain, Denies nausea and Denies vomiting Genitourinary Genitourinary: Denies dysuria Integumentary/Breasts Skin/Breast: Denies rash Neurologic Neurologic: Denies loss of vision and Denies weakness PFSH All Active Problems (Updated 03/30/22 @ 23:37 by Shyam Huerta MD) Headache (Acute) Skin mole (Acute) scalp Insomnia (Acute) Tobacco use disorder (Acute) 2021- 05/29- 1/ PPD x 10 years Depression (Chronic) Anxiety (Acute 04/30/14) Medical History IUD surveillance Surgical History History of hernia repair Previous section (03/30/15) Family History Mother Essential hypertension Mental disorder Breast cancer Social History Smoking/Tobacco Use Status: Current every day Tobacco Type: cigarettes Tobacco: How many years used: 10 Quit status: considering quitting Second Hand Exposure: Yes Smoking risk assessment performed?: Yes Alcohol Intake: current Alcohol Intake frequency: a few times a week Alcohol type: beer Drug use: Rarely Substance use type: marijuana What type of physical activity do you participate in: aerobic Duration: 15-30 minutes/day Frequency: 3-4 times per week Felicita/Jainism: No preference Special felicita needs: No Seatbelt use: always Helmet use: Yes Helmet use: sometimes 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 In current or past relationships, have you been: threatened Do you feel safe at home: Yes Do you feel safe in your relationship?: Yes Additional Social history: in past relationship Female Reproductive History Menstrual control method: progestin IUCD (Inserted post November 2015) History History 2 Para 2 Hx # Term Pregnancies Multiple births Hx # Pregnancies Ectopic pregnancies AB induced Hx Number of Living Children AB spontaneous Exam Const General: no acute distress Orientation: alert HENMT Head: normal to inspection Ears: external ears normal General nose exam: external nose normal Mouth: moist mucous membranes Eyes General: appearance normal, both eyes and all related structures Neck Neck: normal visual inspection Resp Effort & Inspection: normal respiratory effort and able to speak in complete sentences Cardio Rate: regular rate Skin General skin exam: no rashes or lesions noted Neuro General: patient alert and patient oriented x3 Extrem General: normal to inspection Psych Mental Status: mental status grossly normal Course Vital Signs Vital signs: Vital Signs Temperature 36.7 C 03/30/22 22:34 Pulse 80 03/30/22 22:34 Respiratory Rate 16 03/30/22 22:34 Blood Pressure 123/63 03/30/22 22:34 Pulse Oximetry 98 03/30/22 22:34 Temperature 36.7 C 03/30/22 22:34 Temperature Source Skin 03/30/22 22:34 Pulse 80 03/30/22 22:34 Respiratory Rate 16 03/30/22 22:34 Respiratory Effort 03/30/22 22:34 Blood Pressure 123/63 03/30/22 22:34 Blood Pressure Position Sitting 03/30/22 22:34 Pulse Oximetry 98 03/30/22 22:34 Oxygen Delivery Method Room Air 03/30/22 22:34 Oxygen Flow Rate 0 03/30/22 22:34 Pain Level 6 03/30/22 22:34
[2022-03-30 23:01] LABS: Abs Immature Grans 0.03 10^3/uL (0.0-0.06); Absolute Basophil Count 0.02 10^3/uL (0.0-0.2); Basophils % 0.2; Eosinophils % 0.8; HCT 40.8 % (36.0-46.0); HGB 13.3 g/dL (11.2-15.7); Immature Grans % 0.3; Lymphocytes % 31.1; MCHC 32.6 % (32.0-36.0); MCV 95 fL (80-95); Monocytes % 7.1; Neutrophils % 60.5; Platelet Count 261 10^3/uL (130-400); RBC 4.29 10^6/uL (3.93-5.22); RDW 12.2 % (11.7-14.6); RDW-SD 42.5 fL; WBC 11.91 10^3/uL (4.4-10.8)
[2022-03-30 23:02] LABS: Absolute Monocyte Count 0.85 10^3/uL (0.1-0.8); Absolute Neutrophil Count 7.21 10^3/uL (1.2-6.7)
[2022-03-30] MEDS: Prochlorperazine 10 MG/2 ML VIAL IVP (23:02)
[2022-03-30] MEDS: Ketorolac 15 MG/ML VIAL IVP (23:03)
[2022-03-30] MEDS: Normal Saline 1,000 ML 1000 ML IV (23:04)
[2022-03-30 23:29] LABS: ALT 30 U/L (14-59); AST 22 U/L (15-37); Albumin 3.8 g/dL (3.4-5.0); Alkaline Phosphatase 85 U/L (46-116); Anion Gap 8.6 mmol/L (3-11); BUN 11 mg/dL (7-18); Bilirubin, Total 0.2 mg/dL (0.2-1.0); CO2 27.4 mmol/L (21.0-32.0); CREATININE 0.7 mg/dL (0.55-1.02); Calcium 8.7 mg/dL (8.5-10.1); Chloride 108 mmol/L (98-107); Estimated GFR 119.99 (mL/min/1.73m2); Glucose 99 mg/dL (74-106); Potassium 3.7 mmol/L (3.5-5.1); Sodium 144 mmol/L (136-145); Total Protein 7.9 g/dL (6.4-8.2)
== END 2022-03-30 23:43 | disposition home or self-care (01) ==
PROVIDERS: Emergency Provider Emergency Medicine; PCP Nurse Practitioner
DX: R51.9 Headache, unspecified (principal)
CPT/HCPCS: 80053; 96361; 96374; 96375; 99284; 85025; J0780; J1885

== ENCOUNTER 2022-04-01 19:16 | Outpatient (REF) | payer MEDICAID, SELFPAY ==
[2022-04-03 11:16] LABS: Lyme Ab w Rflx to Lyme Confirm Negative (Negative)
[2022-04-03 13:33] LABS: EBV EA IgG Negative (Negative)
[2022-04-05 00:30] LABS: Anaplasma phagocytophilum Negative (Negative); B. miyamotoi PCR Negative (Negative); Babesia divergens/MO-1 Negative (Negative); Babesia duncani Negative (Negative); Babesia microti Negative (Negative); Ehrlichia chaffeensis Negative (Negative); Ehrlichia ewingii/canis Negative (Negative); Ehrlichia muris eauclairensis Negative (Negative)
== END 2022-04-01 19:17 | disposition home or self-care (01) ==
LOC: LBN 19:16
PROVIDERS: PCP Nurse Practitioner; Visit Provider Physician Assistant
DX: R51.9 Headache, unspecified (principal)
CPT/HCPCS: 86663; 87798; 86618

== ENCOUNTER 2022-08-08 17:27 | Emergency (ER) | payer MEDICAID, SELFPAY ==
[2022-08-08 17:47] VITALS: BP 156/89; PULSE 89; RESP 15; TEMP 37.4; O2SAT 98
--- NOTE | 2022-08-08 17:57 | W.ED.GENAD ---
Discharge Plan Disposition Patient Disposition: Home Condition: Improving Discharge Details Clinical Impression: Upper respiratory infection Primary Care Provider: Laura Mayo ED Provider: Osmel Edward Home Meds and New Rx's Prescriptions: New azithromycin 250 mg tablet See Rx Instructions .ROUTE .COMPLEX Qty: 6 0RF Rx Instructions: For 250 mg dose pack: take 500 mg today (day 1), then 250 mg for 4 days (days 2-5) Continued Mirena 20 mcg/24 hr (5 years) intrauterine device 1 insert IY ONCE Patient Comments: Inserted November 2015 omeprazole 40 mg capsule,delayed release(DR/EC) 40 mg PO DAILY 30 Days Qty: 30 1RF Discharge Instructions Instructions: Upper Respiratory Infection (ED) Additional Instructions: Home to rest this evening. May use oxzu-[id number] decongestants as discussed. Return for any acute concerns. Please take antibiotics as prescribed. Medical Decision Making 31-year-old female presents from home complaining of 2 days of cough, congestion, production of sputum and sore throat. She was exposed to someone with an upper respiratory illness or strep at work. She has otherwise been well and recently stopped smoking. On exam she has erythematous oropharynx and distended tympanic membranes that are slightly erythematous bilaterally. A rapid strep test was obtained and negative. The patient does appear to be developed bronchitis and possible sinusitis. She is intolerant of many antibiotics and therefore we will place her on a Z-Hoang. She is stable and appropriate for discharge to home. HPI General Mode of arrival: ambulatory. Date/Time Provider Initiated Documentation: 08/08/22 17:57. Limitations to Documentation: no limitations. Information obtained by: patient. History of Present Illness 31 year old F presents to the emergency department with the chief complaint of Sore throat, described as moderate, and is localized to the mouth. Patient reports no radiation. Patient started experiencing this day(s) and it has been constant. No relieving factors improve symptom(s), No exacerbating factors reported . Patient notes cough; denies nausea/vomiting and shortness of breath. Patient did receive the following treatments prior to arrival, none Related Data Home Medications Medication Instructions Recorded Confirmed levonorgestrel 21 mcg/24 hours (8 1 insert intrauterine ONCE 06/11/18 08/06/22 yrs) 52 mg intrauterine device (Mirena) omeprazole 40 mg capsule,delayed 40 mg PO DAILY 30 days #30 caps 05/14/22 08/06/22 release azithromycin 250 mg tablet See Rx Instructions PO .COMPLEX #6 08/08/22 tabs Previous Rx's Medication Instructions Recorded omeprazole 40 mg capsule,delayed 40 mg PO DAILY 30 days #30 caps 05/14/22 release azithromycin 250 mg tablet See Rx Instructions PO .COMPLEX #6 08/08/22 tabs Allergies Allergy/AdvReac Type Severity Reaction Status Date / Time No Known Allergies Allergy Verified 08/06/22 12:55 General Stated Complaint: RespSymp DARRYN: 4 Review of Systems Narrative: Cough and congestion. Sore throat. Positive sick contacts at work. 6 systems reviewed and otherwise neg PFSH All Active Problems (Updated 08/08/22 @ 18:07 by Osmel Edward MD) Upper respiratory infection (Acute) Vocal cord polyp (Acute) Hoarseness of voice (Acute) GERD (gastroesophageal reflux disease) (Chronic) Skin mole (Acute) scalp Insomnia (Acute) Tobacco use disorder (Acute) 2021- 05/29- 05/27 PPD x 10 years Depression (Chronic) Anxiety (Acute 04/30/14) Medical History IUD surveillance Surgical History History of hernia repair Previous section (03/30/15) Family History Mother Essential hypertension Mental disorder Breast cancer Father Hyperlipidemia Sister No problems noted. Son Depression Daughter No problems noted. Social History Smoking/Tobacco Use Status: Current every day Tobacco Type: cigarettes Tobacco: How many years used: 10 Quit status: has quit before Second Hand Exposure: Yes Smoking risk assessment performed?: Yes Alcohol Intake: current Alcohol Intake frequency: a few times a week Alcohol type: beer Drug use: Occasionally Substance use type: marijuana Caregiver/Support person: No Household members: spouse and children Housing: house Communication Needs: None Do you need help understanding health information?: Never Pets and animals: Yes Pets and animals: cat(s) Sexually active: Yes Do you think of yourself as: straight/heterosexual Current gender identity: female What is your relationship status?: How often do you talk on the phone with friends or family?: three or more times per week How often do you get together with friends or relatives?: once per week How often do you attend nondenominational or uatsdin services?: decline to answer Do you belong to any clubs or organized social groups?: no Panel score (0-1 are the most socially isolated patients): 2 What type of physical activity do you participate in: none Frequency: does not exercise Felicita/Protestant: No preference Special felicita needs: No Seatbelt use: always Helmet use: Yes Helmet use: sometimes Drive 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 Pleasant, well groomed, interactive. HEAD: Normocephalic, atraumatic ENT: Mucous membranes moist, oropharynx erythematous without asymmetry, tympanic membranes distended bilaterally, external ear exam unremarkable EYES: PERRL, EOMI NECK: Full ROM, no OSBALDO, no menigismus CHEST/RESP: Nontender, clear to auscultation bilateral, no wheeze/rhonchi/rales CARDIOVASCULAR: RRR, no murmur, rub viviana. 2+ Rad pulse bilateral ABDOMEN: Soft, nontender, no mass. +Bowel sounds EXT: Full ROM, no edema, no rash Neuro: Grossly normal neurologic exam, conversant, interactive. Psych: Speech fluent, thoughts congruent, affect normal Course Vital Signs Vital signs: Vital Signs Temperature 37.4 C 08/08/22 17:47 Pulse 89 08/08/22 17:47 Respiratory Rate 15 08/08/22 17:47 Blood Pressure 156/89 H 08/08/22 17:47 Pulse Oximetry 98 08/08/22 17:47 Temperature 37.4 C 08/08/22 17:47 Pulse 89 08/08/22 17:47 Respiratory Rate 15 08/08/22 17:47 Blood Pressure 156/89 H 08/08/22 17:47 Blood Pressure Position Sitting 08/08/22 17:47 Pulse Oximetry 98 08/08/22 17:47 Oxygen Delivery Method Room Air 08/08/22 17:47 Oxygen Flow Rate 0 08/08/22 17:47 Pain Level 5 08/08/22 17:47
== END 2022-08-08 18:18 | disposition home or self-care (01) ==
PROVIDERS: Emergency Provider Emergency Medicine; PCP Nurse Practitioner Family
DX: J06.9 Acute upper respiratory infection, unspecified (principal)
CPT/HCPCS: 87880; 99283; 87081; 99284

== ENCOUNTER 2022-08-26 07:44 | Day surgery (SDC) | payer MEDICAID, SELFPAY ==
[2022-08-26 08:00] VITALS: BP 122/75; PULSE 85; RESP 18; TEMP 36.2; O2SAT 99
[2022-08-26] MEDS: Lactated Ringers 1,000 ML 80 ML IV (08:24)
--- NOTE | 2022-08-26 09:17 | W.PM.DSUDISC ---
Date of service: 08/26/22 Time of Service: 09:17 Discharge Plan Disposition Patient Disposition: Home Condition: Good Discharge Details Reason For Visit: Microlaryngoscopy Attending Provider: Lincoln Rodrigues Primary Care Provider: Laura Mayo Home Meds and New Rx's Prescriptions: New omeprazole 20 mg capsule,delayed release(DR/EC) 20 mg PO DAILY 14 Days Qty: 14 0RF Rx Instructions: Start today No Action Mirena 20 mcg/24 hr (5 years) intrauterine device 1 insert IY ONCE Patient Comments: Inserted November 2015 Discharge Instructions Additional Instructions: Relative voice rest for the next 2 weeks. Avoid shouting or whispering. Avoid clearing your throat. Keep yourself well-hydrated. No smoking. No driving for 48 hours. Ibuprofen or Tylenol for discomfort. Referrals: Lincoln Rodrigues MD [ [facility] STAFF PHYSICIAN] - (1 month, please call for appointment prior to patient's departure) Diet:: As Tolerated Discharge Orders Discharge Orders: Discharge Order (Routine); Ordered 08/26/22 Ordered By: Lincoln Rodrigues
--- NOTE | 2022-08-26 09:19 | W.ANESPRE ---
General Info Date of Service Date Performed: 08/26/22 Height: 5 ft Weight: 81.2 kg Body Mass Index (BMI): 34.9 Surgical Procedure: Operation Date: 08/26/22 09:40 Proposed Procedure Side Surgeon p Micro Laryngoscopy w/Vocal Cord Mass Excision Lincoln Rodrigues MD Meds Allergies and Home Medications Allergies Allergy/AdvReac Type Severity Reaction Status Date / Time No Known Allergies Allergy Verified 08/26/22 08:06 Home Medication Medication Instructions Recorded levonorgestrel 21 mcg/24 hours (8 1 insert intrauterine ONCE 06/11/18 yrs) 52 mg intrauterine device (Mirena) omeprazole 20 mg capsule,delayed 20 mg PO DAILY 2 weeks #14 caps 08/26/22 release Current Visit Medications: Current Medications Generic Name Dose Route Start Last Admin Trade Name Freq PRN Reason Stop Dose Admin Acetaminophen 650 mg 08/26/22 09:16 Acetaminophen 650 Mg Supp RI Q4H PRN PRN Ringer's Solution 1,000 mls @ 80 mls/hr 08/26/22 06:00 08/26/22 08:24 IV 08/26/22 23:59 80 mls/hr INFUSION RABIA Administration IV Miscellaneous Supplies 1 each 08/26/22 06:00 Iv Access IV 08/26/22 23:59 DIRECTED RABIA Ibuprofen 600 mg 08/26/22 09:16 Ibuprofen 600 Mg Tab PO Q6H PRN PRN Sodium Chloride 0 ml 08/26/22 06:00 Normal Saline Flush 10 Ml Syr IV 08/26/22 23:59 PRN PRN Sodium Chloride 0 ml 08/26/22 06:00 Normal Saline 10 Ml Vial IJ 08/26/22 23:59 DIRECTED PRN Sterile Water 0 ml 08/26/22 06:00 Water,Injection,Sterile 10 Ml Vial IJ 08/26/22 23:59 DIRECTED PRN PFSH Active Problems Active Problems: Problem Status Onset Code Upper respiratory infection J06.9 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 Hoarseness of voice R49.0 GERD (gastroesophageal reflux disease) K21.9 Skin mole D22.9 Insomnia G47.00 Tobacco use disorder F17.200 Depression F32.9 Anxiety 04/30/14 F41.9 Medical History Medical History IUD surveillance Surgical History Surgical History History of hernia repair Previous section (03/30/15) Tobacco Smoking/Tobacco Use Status: Former Tobacco Use Passive smoking exposure: Yes Second hand exposure: Yes Alcohol Alcohol Intake: current Alcohol intake frequency: a few times a month Alcohol type: beer Substance Use Substance use: Occasionally Substance use type: marijuana Prental History History 2 Para 2 Hx # Term Pregnancies Multiple births Hx # Pregnancies Ectopic pregnancies AB induced Hx Number of Living Children AB spontaneous Vital Signs and Lab Results Vital Signs Most Recent Vital Signs in EMR: Most Recent Vital Signs Temp Pulse Resp BP Pulse Ox 36.2 C L 85 18 122/75 99 08/26/22 08:00 08/26/22 08:00 08/26/22 08:00 08/26/22 08:00 08/26/22 08:00 Point of Care Results Point of Care Results: POC- Test(urine) Negative 08/26/22 08:13 Lab Results Blood Type / Crossmatch: No Data to Display Complete Blood Count: No Data to Display Complete Metabolic Panel: No Data to Display Liver Function Panel: No Data to Display Coagulation Panel: No Data to Display Cardiac Panel: No Data to Display Arterial Blood Gas: No Data to Display Venous Blood Gas: No Data to Display Pancreas Panel: No Data to Display Thyroid Panel: No Data to Display Infectious Disease: No Data to Display Blood Cultures: No Data to Display Toxicology Panel: No Data to Display Panel: No Data to Display Anesthesia Assessment and Plan Anesthesia History Personal History: No History of Anesthesia Complications Family History: Family History Unknown Exercise Tolerance Exercise Tolerance: Metabolic Equivalents>4 Pertinent Negatives Pertinent Negatives: No Symptoms of GERD, No Major Cardiovascular Symptoms or Complaints and No Major Pulmonary Symptoms or Complaints Cardiac & Pulmonary Exam Cardiac Exam: Normal S1/S2 Heart Sounds Pulmonary Exam: Clear Bilateral Breath Sounds Implantable Cardiac Device Does patient have a Pacemaker or an ICD?: No Airway Exam Known Difficult Airway: No Mallampati Class: 2 Mouth Opening: Normal (> 3cm) Thyromental Distance: Greater than 3 cm Neck Range of Motion: Full ROM Neck Circumference: Normal Teeth Condition: Normal Dentition ASA Classification ASA Score: ASA 2 Emergency Case?: No NPO Status NPO Status: NPO Clears >2 hours, Solids >8 hours Status Status: Negative HCG Anesthesia Plan Resuscitation Status: Full Code Anesthesia Technique: General Anesthesia Airway Planned: Endotracheal Tube Monitors Used: Standard Monitors
[2022-08-26 09:21] VITALS: BMI 34.9
--- NOTE | 2022-08-26 10:14 | VOCCOR_PTH ---
PATIENT: Sofi Christianson LOC: [facility] U#:[id number] AGE/SX: 32/F ROOM: RE08/26/[address]: Lincoln Rodrigues MD : 1990 BED: DIS: 08/26/2022 SPEC #: [id number] RECD: 08/26/22 12:58 STATUS: SARAH REQ #: [id number] LAYLA: 08/26/22 10:[address]: Lincoln Rodrigues DEPT: Surgical Specimen RECD BY: Ita Cardenas ENTERED: 08/26/22 13:00 SP TYPE: VOCCOR OTHR DR: Laura Mayo, TUYET Tissues: 1 - VOCAL CORD Procedures: GROSS AND MICRO LEVEL 4 Comments: [id number]
--- NOTE | 2022-08-26 10:21 | W.PM.OP ---
Date of service: 08/26/22 Time of Service: 10:21 Operative Note Operative Note DATE OF PROCEDURE: 08/26/22 PRE-OP DIAGNOSIS: Left true vocal cord mass POST-OP DIAGNOSIS: same PROCEDURE: Microlaryngoscopy with excision of left true vocal cord mass SURGEON: Lincoln Rodrigues ANESTHESIA TYPE: General LMA/ETT Refer to Anesthesia Record ESTIMATED BLOOD LOSS: 1 PATHOLOGY: other (Left true vocal cord mass) COMPLICATIONS: None Patient was transported to: PACU Patient's condition: stable Indications: Patient with a left vocal cord mass with resultant hoarseness. Options were explained to the patient regarding further management. She elected to undergo the above procedure. Consent was filled out and signed prior to surgery. 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 This had a translucent appearance. It was solitary. There is no verrucoid component. Procedure Description: After obtaining an adequate level of general endotracheal anesthesia the patient was positioned in a supine position and prepped and draped in appropriate fashion dental guard was placed along the upper dentition, and a [employer] laryngoscope was carefully introduced into the oral cavity and then into the oropharynx and subsequently into the larynx, to the level of the vocal cords. Once the vocal cords were well visualized, the laryngoscope was placed in suspension and a microscope with a 400 mm lens moved into position. Using the microscope and the laryngoscope for visualization, the mass was identified, and found to be as described above. This was pulled medially and excised in 2 pieces taking care to avoid trauma to the surrounding tissues bleeding was minimal and self-limited. After this was accomplished, the wound was inspected revealing no significant bleeding and no secondary masses. There is no obvious residual. The laryngoscope was taken out of suspension and removed. Dentition was inspected revealing no dental trauma. The patient was then awakened and transported to the recovery room in stable condition by anesthesia. I was present throughout the entire case.
[2022-08-26 10:28] VITALS: BP 107/59; PULSE 91; RESP 19; TEMP 36.1; O2SAT 98
[2022-08-26 10:33] VITALS: BP 101/79; PULSE 91; RESP 19; TEMP 36.1; O2SAT 97
[2022-08-26 10:38] VITALS: BP 108/78; PULSE 90; RESP 24; TEMP 36.3; O2SAT 99
[2022-08-26 10:50] VITALS: BP 97/69; PULSE 82; RESP 18; TEMP 36; O2SAT 99
--- NOTE | 2022-08-26 11:02 | W.ANESPOSTOP ---
Postoperative Evaluation Date, Time and Location Date Performed: 08/26/22 Time Performed: 10:50 Patient Location: Day Surgery Unit Vital Signs Most Recent Imported Vital Signs: Most Recent Vital Signs Temp Pulse Resp BP Pulse Ox 36.3 C L 90 24 108/78 99 08/26/22 10:38 08/26/22 10:38 08/26/22 10:38 08/26/22 10:38 08/26/22 10:38 Pain Score Most Recent Pain Score: Most Recent Pain Score Pain Level 0 08/26/22 10:38 Assessment Mental Status: Awake (Alert & Oriented to Patient Baseline) Airway and Respiratory Function: Patent airway with normal (patient baseline) respiratory exam Cardiovascular Function: Hemodynamically Stable Hydration Status: Adequately Hydrated Nausea & Vomiting: No Nausea or Vomiting Pain: Pt. Denies Any Pain Peripheral Nerve Block: Patient did not receive a nerve block
[2022-08-26 11:20] VITALS: BP 102/67; PULSE 78; RESP 18; TEMP 36.2; O2SAT 99
== END 2022-08-26 07:45 | disposition home or self-care (01) ==
PROVIDERS: PCP Nurse Practitioner Family; Visit Provider Otolaryngology
PROC: 0CJS8ZZ Inspection of Larynx, Via Natural or Artificial Opening Endoscopic (ICD-10-PCS; CPT 31575; principal; 2022-08-26 09:30)
DX: J38.3 Other diseases of vocal cords (principal); R49.8 Other voice and resonance disorders
CPT/HCPCS: 31541; 81025; 88305; J1100; J2250; J2405; J2704

== ENCOUNTER 2022-12-31 23:00 | Emergency (ER) | payer SELFPAY ==
[2022-12-31 23:03] VITALS: BP 118/83; PULSE 109; RESP 18; TEMP 36.8; O2SAT 98
--- NOTE | 2022-12-31 23:08 | W.ED.GENAD ---
Discharge Plan Disposition Patient Disposition: Home Discharge Details Clinical Impression: UTI (urinary tract infection) Primary Care Provider: Lauar Mayo ED Provider: Leroy Crane Meds and New Rx's Prescriptions: New ciprofloxacin HCl [Cipro] 250 mg tablet 250 mg PO BID Qty: 14 0RF phenazopyridine [Pyridium] 100 mg tablet 100 mg PO QPC PRNQty: 10 0RF Continued Mirena 20 mcg/24 hr (5 years) intrauterine device 1 insert IY ONCE Patient Comments: Inserted November 2015 meclizine 25 mg tablet 25 mg PO TID Qty: 10 0RF Discharge Instructions Instructions: Urinary Tract Infection in Women (ED) Discharge Data Discharge Physician: Leroy Crane Medical Decision Making MDM: Summary: Patient presents with 2 days of dysuria urgency and frequency most likely a urinary tract infection. Labs which is a urinalysis showed pyuria and hematuria bacteria most likely UTI. Patient was given ciprofloxacin and Pyridium in the emergency department with improvement and will be discharged on the same as an outpatient Data Review Analysis All the data on this patient was reviewed by me including laboratory and imaging studies as well as bedside studies performed by me Independent review of Studies Imaging Lab: Labs as interpreted by me shows pyuria Risk Stratification: Patient with an uncomplicated UTI Celeste been sent home on antibiotics and analgesics Differential Diagnosis: 1. UTI 2. pyelonephritis 3. Cystitis 4. 5. Consultants: Shared disposition: Patient understands and will be discharged home Impression: Lab Data Lab results reviewed: Yes I reviewed the patient's lab results. Lab results narrative: pyuria, bacteriuria and hematuria Labs: RUN DATE: 12/31/22 [facility] PAGE 1 RUN TIME: [id number] RUN USER: [place] [address] Lennie Pantoja MD PATIENT REPORT PATIENT: Sofi Christianson LOC: ER U #: [id number] /SX: 1990 F ROOM: RE12/31/[address]: LEROY CRANE MD STATUS: PRE ER BED: DIS: SPEC #: [id number] LAYLA: 12/31/22 STATUS: COMP REQ #: [id number] RECD: 12/31/[address]: LEROY CRANE MD ENTERED: 12/31/[address]: DEL BENZ,LAURA FAX #: ORDERED: Urinalysis, UA Micro Test Result Flag Reference Verified Color Yellow Yellow 12/31/22 Clarity Cloudy Clear 12/31/22 Specific [place] 1.015 1.005-1.025 12/31/22 pH 6.5 5-8 12/31/22 Leukocyte Esterase Moderate H Negative 12/31/22 Nitrite Positive H Negative 12/31/22 Protein Negative Negative mg/dL 12/31/22 Glucose Negative Negative mg/dL 12/31/22 Ketones Negative Negative mg/dL 12/31/22 Urobilinogen 0.2 Up to 0.2 mg/dL 12/31/22 Bilirubin Negative Negative 12/31/22 Blood Large H Negative 12/31/22 WBC 20-50 H 0-5 HPF 12/31/22 RBC 10-20 H 0-2 HPF 12/31/22 Epithelial Cells Many Negative HPF 12/31/22 Bacteria Few Negative HPF 12/31/22 Crystals Negative Negative HPF 12/31/22 Mucus Negative Negative 12/31/22 Casts 0-2 Hyaline Negative LPF 12/31/22 C & S Indicated? No/Sq. Contamination 12/31/22 Patient: Sofi Christianson LABORATORY Acct#[id number] Unit#[id number] HPI General Date/Time Provider Initiated Documentation: 12/31/22 23:08. HPI Narrative: Patient presents to the emergency department complaining of 2 days of urinary frequency urgency and burning on urination open: Dysuria denies any fever denies any chills denies any back pain Related Data Home Medications Medication Instructions Recorded Confirmed levonorgestrel 21 mcg/24 hours (8 1 insert intrauterine ONCE 06/11/18 09/24/22 yrs) 52 mg intrauterine device (Mirena) meclizine 25 mg tablet 25 mg PO TID #10 tabs 08/30/22 09/24/22 ciprofloxacin HCl 250 mg tablet 250 mg PO BID #14 tabs 12/31/22 (Cipro) phenazopyridine 100 mg tablet 100 mg PO QPC PRN 6 doses #10 tabs 12/31/22 (Pyridium) Previous Rx's Medication Instructions Recorded meclizine 25 mg tablet 25 mg PO TID #10 tabs 08/30/22 ciprofloxacin HCl 250 mg tablet 250 mg PO BID #14 tabs 12/31/22 (Cipro) phenazopyridine 100 mg tablet 100 mg PO QPC PRN 6 doses #10 tabs 12/31/22 (Pyridium) Allergies Allergy/AdvReac Type Severity Reaction Status Date / Time No Known Allergies Allergy Verified 09/24/22 16:11 General Stated Complaint: Urinary DARRYN: 4 Review of Systems Narrative: Review of Systems: Constitutional: No fevers, chills, sweats Eye: No recent visual problems ENT: No ear pain, nasal congestion, sore throat Respiratory: No shortness of breath, cough Cardiovascular: No Chest pain, palpitations, syncope Gastrointestinal: No nausea, vomiting, diarrhea Genitourinary: No hematuria [place]/Lymph: Negative for bruising tendency, swollen lymph glands Endocrine: Negative for excessive thirst, excessive hunger Musculoskeletal: No back pain, neck pain, joint pain, muscle pain, decreased range of motion Integumentary: No rash, pruritus, abrasions Neurologic: Alert & oriented X 4 Psychiatric: No anxiety, depression PFSH All Active Problems (Updated 12/31/22 @ 23:42 by Leroy Crane MD) UTI (urinary tract infection) (Acute) Vocal cord polyp (Acute) Hoarseness of voice (Acute) GERD (gastroesophageal reflux disease) (Chronic) Skin mole (Acute) scalp Insomnia (Acute) Tobacco use disorder (Acute) 2021- 05/29- 05/27 PPD x 10 years Depression (Chronic) Anxiety (Acute 04/30/14) Medical History IUD surveillance Surgical History History of hernia repair History of laryngoscopy Microlaryngoscopy with excision of left vocal cord mass 08/26/2022 Previous section (03/30/15) Family History Mother Essential hypertension Mental disorder Breast cancer Father Hyperlipidemia Sister No problems noted. Son Depression Daughter No problems noted. Social History Smoking/Tobacco Use Status: Former Tobacco Use Tobacco: How many years used: 10 Quit status: has quit before Second Hand Exposure: Yes Smoking risk assessment performed?: Yes Alcohol Intake: current Alcohol Intake frequency: a few times a month Alcohol type: beer Drug use: Occasionally Substance use type: marijuana Caregiver/Support person: No Household members: spouse and children Housing: house Communication Needs: None Do you need help understanding health information?: Never Pets and animals: Yes Pets and animals: cat(s) Sexually active: Yes Do you think of yourself as: straight/heterosexual Current gender identity: female What is your relationship status?: How often do you talk on the phone with friends or family?: three or more times per week How often do you get together with friends or relatives?: once per week How often do you attend religious or druze services?: decline to answer Do you belong to any clubs or organized social groups?: no Panel score (0-1 are the most socially isolated patients): 2 What type of physical activity do you participate in: none Frequency: does not exercise Felicita/Presybeterian: No preference Special felicita needs: No Seatbelt use: always Helmet use: Yes Helmet use: sometimes Drive intox or ride w/intox intermodal truck driver: No Do you feel safe at home: Yes Do you feel safe in your relationship?: Yes Female Reproductive History Menstrual control method: progestin IUCD (Inserted post November 2015) History History 2 Para 2 Hx # Term Pregnancies Multiple births Hx # Pregnancies Ectopic pregnancies AB induced Hx Number of Living Children AB spontaneous Exam Narrative Exam Narrative: Exam; vitals signs as reported above normal Constitutional; In no acute distress, afebrile General: cooperative, healthy appearing, comfortable and no acute distress HEENT: Head: normal to inspection, no palpable skull fracture and normocephalic atraumatic Eyes: : appearance normal, both eyes and all related structures EOM intact bilaterally Pupils: PERRL : conjunctiva normal Direct ophthalmoscopy: normal light reflex, normal conjunctiva, normal visual acuity Ears: Normal TM, normal external canal Neck no JVD, supple non tender Neck: normal visual inspection, full ROM and no lymphadenopathy Chest: normal inspection of the chest Respiratory : normal respiratory effort and able to speak in complete sentences no wheezing no rales Cardio Rate: regular rate, rhythm: regular rhythm normal heart sounds S1 and S2 no murmurs, gallops, or rubs GI : normal to inspection, normal bowel sounds, soft, non tender, non distended, no organomegaly Back/Spine/ no CVA tenderness Thoracic/Lumbar Spine: no tenderness or deformities Skin no rashes or lesions Neuro: patient alert and no meningeal signs, Cranial Nerves: CN's II-XI intact bilaterally, Cognition: normal cognition, Speech: speech normal, Gait: normal gait, Depp tendon reflexes normal 2+ muscle strength 5/5 bilaterally Extremities, no edema, full range of motion, normal strength Course Vital Signs Vital signs: Vital Signs Temperature 36.8 C 12/31/22 23:03 Pulse 109 H 12/31/22 23:03 Respiratory Rate 18 12/31/22 23:03 Blood Pressure 118/83 12/31/22 23:03 Pulse Oximetry 98 12/31/22 23:03 Temperature 36.8 C 12/31/22 23:03 Temperature Source Oral 12/31/22 23:03 Pulse 109 H 12/31/22 23:03 Respiratory Rate 18 12/31/22 23:03 Blood Pressure 118/83 12/31/22 23:03 Pulse Oximetry 98 12/31/22 23:03 Oxygen Delivery Method Room Air 12/31/22 23:03 Oxygen Flow Rate 0 12/31/22 23:03 Vital Signs and Lab Results Vital Signs Most Recent Vital Signs in EMR: Most Recent Vital Signs Temp Pulse Resp BP Pulse Ox 36.8 C 109 H 18 118/83 98 12/31/22 23:03 12/31/22 23:03 12/31/22 23:03 12/31/22 23:03 12/31/22 23:03 Lab Results Blood Type / Crossmatch: No Data to Display Complete Blood Count: No Data to Display Complete Metabolic Panel: No Data to Display Liver Function Panel: No Data to Display Coagulation Panel: No Data to Display Cardiac Panel: No Data to Display Arterial Blood Gas: No Data to Display Venous Blood Gas: No Data to Display Pancreas Panel: No Data to Display Thyroid Panel: No Data to Display Infectious Disease: No Data to Display Blood Cultures: No Data to Display Toxicology Panel: No Data to Display Panel: No Data to Display
[2022-12-31 23:18] LABS: Bilirubin Negative (Negative); Blood Large (Negative); Clarity Cloudy (Clear); Glucose Negative (Negative); Ketones Negative (Negative); Leukocyte Esterase Moderate (Negative); Nitrite Positive (Negative); Specific Gravity 1.015 (1.005-1.025); Urobilinogen 0.2 mg/dL (Up to 0.2); pH 6.5 (5-8)
[2022-12-31 23:28] LABS: Epithelial Cells Many HPF (Negative); WBC 20-50 HPF (0-5)
[2022-12-31 23:29] LABS: Bacteria Few HPF (Negative); C & S Indicated? No/Sq. Contamination; Casts 0-2 Hyaline LPF (Negative); Crystals Negative HPF (Negative); Mucus Negative (Negative)
== END 2023-01-01 00:01 | disposition home or self-care (01) ==
LOC: ER 23:59
PROVIDERS: Emergency Provider Emergency Medicine Emergency Medical Services; PCP Nurse Practitioner Family
DX: R50.9 Fever, unspecified (principal); N39.0 Urinary tract infection, site not specified; M79.10 Myalgia, unspecified site
CPT/HCPCS: 99283; 81003; 81015; 99282

== ENCOUNTER 2023-01-02 20:38 | Outpatient (REF) | payer SELFPAY | END 2023-01-02 20:39 | disposition home or self-care (01) | LOC: NCHCN 20:38 | PROVIDERS: PCP Nurse Practitioner Family; Visit Provider Nurse Practitioner Family | DX: N39.0 Urinary tract infection, site not specified (principal) | CPT/HCPCS: 87086 ==

== ENCOUNTER 2023-02-06 02:24 | Outpatient (CLI) | payer BC, SELFPAY ==
[2023-02-06 16:35] LABS: HCT 40.9 % (36.0-46.0); HGB 13.9 g/dL (11.2-15.7); MCH 31.3 pg (27.0-33.0); MCV 92 fL (80-95); Platelet Count 293 10^3/uL (130-400); RBC 4.44 10^6/uL (3.93-5.22); RDW 12.5 % (11.7-14.6); RDW-SD 42.4 fL; WBC 8.19 10^3/uL (4.4-10.8)
[2023-02-06 16:48] LABS: Hemoglobin A1C 5.2 % (<5.7)
[2023-02-06 17:15] LABS: BUN 16 mg/dL (7-18); CREATININE 0.7 mg/dL (0.55-1.02); Calcium 9.1 mg/dL (8.5-10.1); Calculated LDL 101 mg/dL (<100); Chloride 104 mmol/L (98-107); Cholesterol 157 mg/dL (<200); Estimated GFR 119.24 (mL/min/1.73m2); Glucose 88 mg/dL (74-106); HDL Cholesterol 34 mg/dL (40-60); Potassium 3.6 mmol/L (3.5-5.1); Sodium 138 mmol/L (136-145); TSH (W/Ref FT4) 1.07 uIU/mL (0.36-3.74); Triglyceride 114 mg/dL (<150)
== END 2023-02-06 02:25 | disposition home or self-care (01) ==
LOC: LBO 02:24
PROVIDERS: PCP Nurse Practitioner Family; Visit Provider Nurse Practitioner Family
DX: E66.9 Obesity, unspecified (principal); F32.9 Major depressive disorder, single episode, unspecified; F41.9 Anxiety disorder, unspecified; Z00.00 Encounter for general adult medical examination without abnormal findings
CPT/HCPCS: 36415; 80048; 80061; 85027; 83036; 84443

== ENCOUNTER 2023-04-16 08:24 | Outpatient (REF) | payer BC, SELFPAY ==
--- NOTE | 2023-04-16 07:30 | SKI_PTH ---
PATIENT: Sofi Christianson LOC: [facility] U#:[id number] AGE/SX: 32/F ROOM: RE04/16/[address]: Lincoln Rodrigues MD : 1990 BED: DIS: 04/16/2023 SPEC #: [id number] RECD: 04/16/23 12:32 STATUS: SARAH ALMONTE #: [id number] LAYLA: 04/16/23 07:[address]: Lincoln Rodrigues DEPT: Surgical Specimen RECD BY: Ita Cardenas ENTERED: 04/16/23 12:33 SP TYPE: KENNEY ROCHA DR: Laura Mayo, PRICING DIRECTOR Tissues: 1 - SKIN BIOPSY(SHAVE/PUNCH) Procedures: SKIN LEVEL 4 Comments: [id number]
== END 2023-04-16 08:25 | disposition home or self-care (01) ==
LOC: LBN 08:24
PROVIDERS: PCP Nurse Practitioner Family; Visit Provider Otolaryngology
DX: D22.4 Melanocytic nevi of scalp and neck (principal)
CPT/HCPCS: 88305

== ENCOUNTER 2024-01-25 16:41 | Emergency (ER) | payer SELFPAY ==
[2024-01-25 16:43] VITALS: BP 140/84; PULSE 105; RESP 18; TEMP 36.8; O2SAT 98
[2024-01-25 17:05] LABS: Bilirubin Negative (Negative); Blood Trace-intact (Negative); Clarity Clear (Clear); Glucose Negative (Negative); Ketones Negative (Negative); Leukocyte Esterase Negative (Negative); Nitrite Negative (Negative); Specific Gravity <= 1.005 (1.005-1.025); Urobilinogen 0.2 mg/dL (Up to 0.2); pH 5.5 (5-8)
[2024-01-25 17:22] LABS: Bacteria Few HPF (Negative); C & S Indicated? No; Casts Negative LPF (Negative); Crystals Negative HPF (Negative); Epithelial Cells Few HPF (Negative); Mucus Negative (Negative); RBC 0-2 HPF (0-2); WBC Negative HPF (0-5)
[2024-01-25] MEDS: metroNIDAZOLE 500 MG TAB, 3 TABS/BTL PO (19:31)
[2024-01-25] MEDS: Lidocaine 2% Jelly 11 ML SYR UR (19:36)
--- NOTE | 2024-01-25 20:59 | ED.GENADUL_ITS ---
Discharge Plan Disposition Patient Disposition: Home Condition: Stable Discharge Details Clinical Impression: Vulvodynia Primary Care Provider: Laura Mayo ED Provider: Ita Stiles Home Meds and New Rx's Prescriptions: New metronidazole 500 mg tablet 500 mg PO BID 7 Days Qty: 14 0RF lidocaine 5 % ointment 1 applic topical TID PRNQty: 30 0RF Continued Mirena 21 mcg/24 hours (8 yrs) 52 mg intrauterine device 1 device IY ONCE Patient Comments: Inserted November 2015 trazodone 50 mg tablet 50 mg PO QHS PRN (Reason: sleep) Qty: 30 0RF Discharge Instructions Instructions: Vulvar pain Additional Instructions: Your swabs are pending, we will notify you with the results Take the antibiotic as prescribed, yogurt daily while on this medication Please follow-up with gynecology at your scheduled appointment and return earlier should you have new or worsening complaints Referrals: Lean Capellan DO [OSTEOPATHIC DOCTOR] - Laura Mayo NP [Primary Care Provider] - HPI General Date/Time Provider Initiated Documentation: 01/25/24 17:22 . HPI Narrative: This 33-year-old female presents with report of sensation of pressure and swelling to clitoris. Patient states that this started yesterday patient denies any recent trauma. She denies any new soaps or detergents. She states she had a similar episode several years ago and was diagnosed with bacterial vaginosis for which she took Flagyl for and had symptomatic improvement. She denies any dysuria or frequency. She denies any chance of or abdominal pain. She has any fever or chills. Denies any vaginal discharge sexually active and monogamous with her declines any risk of STDs per patient. Denies any rashes or lesions. Related Data Home Medications ?Medication ?Instructions ?Recorded ?Confirmed levonorgestrel 21 mcg/24 hr (up to 1 device intrauterine ONCE 03/24/23 01/25/24 8 years) 52 mg intrauterine device (Mirena) trazodone 50 mg tablet 50 mg PO QHS PRN sleep #30 tabs 12/09/23 01/25/24 lidocaine 5 % topical ointment 1 applic topical TID PRN #30 grams 01/25/24 metronidazole 500 mg tablet 500 mg PO BID 7 days #14 tabs 01/25/24 Previous Rx's ?Medication ?Instructions ?Recorded trazodone 50 mg tablet 50 mg PO QHS PRN sleep #30 tabs 12/09/23 lidocaine 5 % topical ointment 1 applic topical TID PRN #30 grams 01/25/24 metronidazole 500 mg tablet 500 mg PO BID 7 days #14 tabs 01/25/24 Allergies Allergy/AdvReac Type Severity Reaction Status Date / Time No Known Allergies Allergy Verified 01/25/24 16:49 General Stated Complaint: SENIOR STOCK PLAN ADMINISTRATOR DARRYN: 4 Exam Narrative Exam Narrative: Alert and oriented 33-year-old female, pupils equal round reactive to light and accommodation, no abdominal tenderness, genitourinary exam, clitoris is not inflamed, there is no redness or rash, there is no obvious injury, vaginal exam does not show evidence of acute abnormality, there is no abnormal vaginal discharge, there is tenderness with pelvic or speculum exam. Course Vital Signs Vital signs: Vital Signs Temperature 36.8 C 01/25/24 16:43 Pulse 105 H 01/25/24 16:43 Respiratory Rate 18 01/25/24 16:43 Blood Pressure 140/84 01/25/24 16:43 Pulse Oximetry 98 01/25/24 16:43 Temperature 36.8 C 01/25/24 16:43 Temperature Source Oral 01/25/24 16:43 Pulse 105 H 01/25/24 16:43 Respiratory Rate 18 01/25/24 16:43 Respiratory Effort Normal, Non-Labored 01/25/24 19:36 Blood Pressure 140/84 01/25/24 16:43 Blood Pressure Position Sitting 01/25/24 16:43 Pulse Oximetry 98 01/25/24 16:43 Oxygen Delivery Method Room Air 01/25/24 16:43 Oxygen Flow Rate 0 01/25/24 16:43 Pain Level 8 01/25/24 19:36 Lab/Test Results Lab/Test Results: 01/25/24 19:04 Vaginal Vaginitis Screen - Final Laboratory Tests Range/Units 01/25/24 17:00 Urine Color (Yellow) Yellow Urine Clarity (Clear) Clear Urine pH (5-8) 5.5 Ur Specific [place] (1.005-1.025) <= 1.005 Urine Protein (Neg-Trace) mg/dL Negative Urine Ketones (Negative) mg/dL Negative Urine Blood (Negative) Trace-intact H Urine Nitrite (Negative) Negative Urine Bilirubin (Negative) Negative Urine Urobilinogen (Up to 0.2) mg/dL 0.2 Ur Leukocyte Esterase (Negative) Negative Urine RBC (0-2) HPF 0-2 Urine WBC (0-5) HPF Negative Ur Epithelial Cells (Negative) HPF Few Urine Crystals (Negative) HPF Negative Urine Bacteria (Negative) HPF Few Urine Casts (Negative) LPF Negative Urine Mucus (Negative) Negative Ur Culture Indicated? No Urine Glucose (Negative) mg/dL Negative POC- Test(urine) Negative Medical Decision Making 33-year-old female who is in no acute distress, without any obvious physical exam findings consistent with acute abnormality. Patient is quite anxious regarding her symptoms, she was given lidocaine which seemed to alleviate some of her symptoms. She was also given a prescription for metronidazole as previously with this episode she tested positive for bacterial vaginosis. Her swabs are pending at this time and Flagyl was ordered empirically. GC chlamydia is pending. Patient will be referred to SENIOR STOCK PLAN ADMINISTRATOR for reassessment this week. Return precautions reviewed and patient expressed understanding Quality:SDOH Health Related Social Needs: No Data to Display PFSH All Active Problems (Updated 01/25/24 @ 19:27 by JUNIOR Awad) Vulvodynia (Acute) Scalp lesion (Acute) Obesity (BMI 30-39.9) (Acute) IUD surveillance (Acute) Vocal cord polyp (Acute) Hoarseness of voice (Acute) GERD (gastroesophageal reflux disease) (Chronic) Skin mole (Acute) scalp Insomnia (Acute) Tobacco use disorder (Acute) 2021- 05/29- 1/ PPD x 10 years Depression (Chronic) Anxiety (Acute 04/30/14) Surgical History History of laryngoscopy Microlaryngoscopy with excision of left vocal cord mass 08/26/2022 History of hernia repair Previous section (03/30/15) Family History Mother Essential hypertension Mental disorder Breast cancer Father Hyperlipidemia Sister No problems noted. Son Depression Daughter No problems noted. Social History Smoking/Tobacco Use Status: Former Tobacco Use Tobacco: How many years used: 10 Quit status: has quit before Second Hand Exposure: Yes Smoking risk assessment performed?: Yes Alcohol Intake: current Alcohol Intake frequency: a few times a month Alcohol type: beer Drug use: Occasionally Substance use type: marijuana Caregiver/Support person: No Household members: spouse and children Housing: house Communication Needs: None Do you need help understanding health information?: Never Pets and animals: Yes Pets and animals: cat(s) Sexually active: Yes Do you think of yourself as: straight/heterosexual Current gender identity: female What is your relationship status?: How often do you talk on the phone with friends or family?: three or more times per week How often do you get together with friends or relatives?: once per week How often do you attend muslim or nondenominational services?: decline to answer Do you belong to any clubs or organized social groups?: no Panel score (0-1 are the most socially isolated patients): 2 What type of physical activity do you participate in: none Duration: 15-30 minutes/day Frequency: does not exercise Felicita/Restorationist: No preference Special felicita needs: No Seatbelt use: always Helmet use: Yes Helmet use: sometimes Drive intox or ride w/intox driver engineer: No Do you feel safe at home: Yes Do you feel safe in your relationship?: Yes Female Reproductive History Menstrual control method: progestin IUCD (Inserted post November 2015) History History 2 Para 2 Hx # Term Pregnancies Multiple births Hx # Pregnancies Ectopic pregnancies AB induced Hx Number of Living Children AB spontaneous PAWSS Have you Been Recently Intoxicated or Drunk Within the Last 30 days?: No Have you Ever Experienced Previous Episodes of Alcohol Withdrawal?: No Have you ever Experienced Withdrawal Seizures?: No Have you ever Experienced Delirium Tremens(DT)s?: No Have you ever undergone Alcohol Rehabilitation Treatment (i.e, inpt ot outpatient treatment programs)?: No Have you ever Experienced Blackouts?: No Have you ever Combined Alcohol with other Downers within the last 90 days?: No Have you ever Combined Alcohol with any other Substance of Abuse during the last 90 days?: No Positive Blood Alcohol level on Presentation? [PCS.BAL]: No Evidence of Increased Autonomic Activity (i.e. HR>120, tremor, sweating, agitation, nausea)?: No Result: 0
--- NOTE | 2024-01-25 21:26 | NUR.NOTE ---
Pt placed on care management referral list to see NET DEVELOPMENT MANAGER Naima Huerta for Vulvodynia, to be seen as soon as possible.
[2024-01-28 11:42] LABS: Chlamydia Result Negative (Negative); GC Result Negative (Negative)
== END 2024-01-25 19:36 | disposition home or self-care (01) ==
PROVIDERS: Emergency Provider Physician Assistant; PCP Nurse Practitioner Family
DX: N94.819 Vulvodynia, unspecified (principal); Z87.891 Personal history of nicotine dependence
CPT/HCPCS: 81025; 87491; 87591; 99283; 81003; 81015; 87480; 87510; 87660

== ENCOUNTER 2024-01-26 16:49 | Emergency (ER) | payer SELFPAY ==
[2024-01-26 16:57] VITALS: BP 116/80; PULSE 73; RESP 95; TEMP 37.2; O2SAT 99
[2024-01-26] MEDS: Dexamethasone 4 MG/ML VIAL PO (18:30)
[2024-01-26] MEDS: LORazepam 0.5 MG TAB PO (18:30)
[2024-01-26] MEDS: Ibuprofen 600 MG TAB PO (18:31)
[2024-01-26] MEDS: LORazepam 1 MG TAB 2 MG PO (19:08)
[2024-01-26 19:11] VITALS: BP 116/80; PULSE 73; RESP 16; TEMP 37.2; O2SAT 99
[2024-01-26] MEDS: Clobetasol 0.05% CREAM 15 GM TUBE TP (19:30)
--- NOTE | 2024-01-26 21:02 | W.ED.GENAD ---
Discharge Plan Disposition Patient Disposition: Home Condition: Stable Discharge Details Clinical Impression: Vulvodynia, Anxiety Primary Care Provider: Laura Mayo ED Provider: Ita Stiles Home Meds and New Rx's Prescriptions: Continued Mirena 21 mcg/24 hours (8 yrs) 52 mg intrauterine device 1 device IY ONCE Patient Comments: Inserted November 2015 trazodone 50 mg tablet 50 mg PO QHS PRN (Reason: sleep) Qty: 30 0RF metronidazole 500 mg tablet 500 mg PO BID 7 Days Qty: 14 0RF lidocaine 5 % ointment 1 applic topical TID PRNQty: 30 0RF yfzyopyo-5-XTA-lemon balm xt 50-12.5-0.5 mg tablet,chewable 2 tab PO Q6H PRN PRN Discharge Instructions Additional Instructions: Take the Ativan, as needed for anxiety you received a dose 0.5 mg in the emergency department you may take an additional 1 mg tonight at 8:00 before bedtime as needed Do not combine this and alcohol with alcohol and be aware of risk of addiction associated with this medication Continue on the lidocaine as needed You may apply the clobetasol topically, a very thin layer twice daily for no more than 5 days I have ordered an ultrasound, call the number at the top of the form tomorrow and follow-up with gynecology tomorrow they will likely call you in the morning to set up an appointment You have been given a dose of steroid that last for 3 days Please return earlier should you have any new or worsening complaints Referrals: Aicha Watkins MD [ [facility] STAFF PHYSICIAN] - 1 day HPI General Date/Time Provider Initiated Documentation: 01/26/24 17:14. HPI Narrative: This 33-year-old female with history of anxiety presents with persistent tenderness and pressure to the clitoral region. She was evaluated yesterday and started on metronidazole out of concern for bacterial vaginosis which she was diagnosed with previously when she had similar symptoms. She states this and the topical lidocaine have not been helpful and she is feeling worse. She states she is having some mild left lower quadrant pain at this time that is intermittent. Denies any dysuria or frequency. Denies any fever or chills. Related Data Home Medications ?Medication ?Instructions ?Recorded ?Confirmed levonorgestrel 21 mcg/24 hr (up to 1 device intrauterine ONCE 03/24/23 01/26/24 8 years) 52 mg intrauterine device (Mirena) trazodone 50 mg tablet 50 mg PO QHS PRN sleep #30 tabs 12/09/23 01/26/24 lidocaine 5 % topical ointment 1 applic topical TID PRN #30 grams 01/25/24 01/26/24 metronidazole 500 mg tablet 500 mg PO BID 7 days #14 tabs 01/25/24 01/26/24 theanine 50 mg-5-HTP 12.5 mg-lemon 2 tab PO Q6H PRN PRN 01/26/24 01/26/24 balm extract 0.5 mg chewable tablet Previous Rx's ?Medication ?Instructions ?Recorded trazodone 50 mg tablet 50 mg PO QHS PRN sleep #30 tabs 12/09/23 lidocaine 5 % topical ointment 1 applic topical TID PRN #30 grams 01/25/24 metronidazole 500 mg tablet 500 mg PO BID 7 days #14 tabs 01/25/24 Allergies Allergy/AdvReac Type Severity Reaction Status Date / Time No Known Allergies Allergy Verified 01/26/24 16:57 General Stated Complaint: [employer] DARRYN: 3 Exam Narrative Exam Narrative: Alert and oriented 33-year-old female in no acute distress, no abdominal tenderness, external pelvic exam was performed without any visible swelling or edema to clitoris, labia without rashes, no abnormal drainage no suprapubic or pelvic tenderness appreciated Course Vital Signs Vital signs: Vital Signs Temperature 37.2 C 01/26/24 16:57 Pulse 73 01/26/24 16:57 Respiratory Rate 95 H 01/26/24 16:57 Blood Pressure 116/80 01/26/24 16:57 Pulse Oximetry 99 01/26/24 16:57 Temperature 37.2 C 01/26/24 19:11 Temperature Source Temporal Artery Scan 01/26/24 16:57 Pulse 73 01/26/24 19:11 Respiratory Rate 16 01/26/24 19:11 Respiratory Effort Normal 01/26/24 19:09 Blood Pressure 116/80 01/26/24 19:11 Blood Pressure Position Sitting 01/26/24 16:57 Pulse Oximetry 99 01/26/24 19:11 Oxygen Delivery Method Room Air 01/26/24 16:57 Oxygen Flow Rate 0 01/26/24 16:57 Pain Level 2 01/26/24 19:11 Medical Decision Making 33-year-old female presenting in no acute distress but very anxious, given Ativan with significant improvement in symptoms, reviewed labs from yesterday with negative trichomonas, yeast, and Gardnerella, pending GC chlamydia. Case discussed with Dr. Watkins, [employer] for recommendations in this unusual presentation. We will attempt clobetasol topically for the next 3 to 5 days a single dose of Decadron p.o., and several tablets of Ativan as needed anxiety. Dr. Watkins will see patient in the office tomorrow for reassessment. Of note, patient did have a negative test and urinalysis yesterday I see no indication to repeat these at this time. Return precautions reviewed and patient expressed understanding, discharged home in stable condition with stable vitals Quality:SDOH Health Related Social Needs: No Data to Display PFSH All Active Problems (Updated 01/26/24 @ 18:14 by JUNIOR Awad) Anxiety (Chronic) Vulvodynia (Acute) Vulvodynia (Acute) Scalp lesion (Acute) Obesity (BMI 30-39.9) (Acute) IUD surveillance (Acute) Vocal cord polyp (Acute) Hoarseness of voice (Acute) GERD (gastroesophageal reflux disease) (Chronic) Skin mole (Acute) scalp Insomnia (Acute) Tobacco use disorder (Acute) 2021- 05/29- 1/ PPD x 10 years Depression (Chronic) Anxiety (Acute 04/30/14) Surgical History History of laryngoscopy Microlaryngoscopy with excision of left vocal cord mass 08/26/2022 History of hernia repair Previous section (03/30/15) Family History Mother Essential hypertension Mental disorder Breast cancer Father Hyperlipidemia Sister No problems noted. Son Depression Daughter No problems noted. Social History Smoking/Tobacco Use Status: Former Tobacco Use Tobacco: How many years used: 10 Quit status: has quit before Second Hand Exposure: Yes Smoking risk assessment performed?: Yes Alcohol Intake: current Alcohol Intake frequency: a few times a month Alcohol type: beer Drug use: Occasionally Substance use type: marijuana Caregiver/Support person: No Household members: spouse and children Housing: house Communication Needs: None Do you need help understanding health information?: Never Pets and animals: Yes Pets and animals: cat(s) Sexually active: Yes Do you think of yourself as: straight/heterosexual Current gender identity: female What is your relationship status?: How often do you talk on the phone with friends or family?: three or more times per week How often do you get together with friends or relatives?: once per week How often do you attend adventist or sikhism services?: decline to answer Do you belong to any clubs or organized social groups?: no Panel score (0-1 are the most socially isolated patients): 2 What type of physical activity do you participate in: none Duration: 15-30 minutes/day Frequency: does not exercise Felicita/Confucianism: No preference Special felicita needs: No Seatbelt use: always Helmet use: Yes Helmet use: sometimes Drive intox or ride w/intox dedicated local truck driver: No Do you feel safe at home: Yes Do you feel safe in your relationship?: Yes Female Reproductive History Menstrual control method: progestin IUCD (Inserted post November 2015) History History 2 Para 2 Hx # Term Pregnancies Multiple births Hx # Pregnancies Ectopic pregnancies AB induced Hx Number of Living Children AB spontaneous
== END 2024-01-26 19:34 | disposition home or self-care (01) ==
PROVIDERS: Emergency Provider Physician Assistant; PCP Nurse Practitioner Family
DX: N94.819 Vulvodynia, unspecified (principal); B37.31 Acute candidiasis of vulva and vagina; F41.9 Anxiety disorder, unspecified
CPT/HCPCS: 99283; J1100

== ENCOUNTER 2024-02-12 11:35 | Outpatient (CLI) | payer SELFPAY ==
[2024-02-12 07:59] LABS: Abs Immature Grans 0.03 10^3/uL (0.0-0.06); Absolute Basophil Count 0.02 10^3/uL (0.0-0.2); Absolute Eosinophil Count 0.07 10^3/uL (0.0-0.7); Absolute Lymphocyte Count 2.14 10^3/uL (1.2-3.4); Absolute Monocyte Count 0.66 10^3/uL (0.1-0.8); Absolute Neutrophil Count 3.86 10^3/uL (1.2-6.7); Basophils % 0.3 %; HGB 13.9 g/dL (11.2-15.7); Immature Grans % 0.4 %; Lymphocytes % 31.6 %; MCH 31.2 pg (27.0-33.0); MCHC 33.1 % (32.0-36.0); MCV 94 fL (80-95); MPV 9.8 fL (8.0-11.0); Monocytes % 9.7 %; Platelet Count 238 10^3/uL (130-400); RBC 4.45 10^6/uL (3.93-5.22); RDW 12.3 % (11.7-14.6); WBC 6.78 10^3/uL (4.4-10.8)
[2024-02-12 08:32] LABS: ALT 31 U/L (14-59); AST 18 U/L (15-37); Albumin 3.4 g/dL (3.4-5.0); Alkaline Phosphatase 76 U/L (46-116); Anion Gap 7.6 mmol/L (3-11); BUN 8 mg/dL (7-18); Bilirubin, Total 0.38 mg/dL (0.2-1.0); CO2 25.4 mmol/L (21.0-32.0); CREATININE 0.9 mg/dL (0.55-1.02); Calcium 9.1 mg/dL (8.5-10.1); Chloride 107 mmol/L (98-107); Estimated GFR 87.65 (mL/min/1.73m2); Glucose 90 mg/dL (74-106); Lipase 21 U/L (16-77); Sodium 140 mmol/L (136-145); Total Protein 7.8 g/dL (6.4-8.2)
== END 2024-02-12 11:36 | disposition home or self-care (01) ==
LOC: LBO 11:36
PROVIDERS: PCP Nurse Practitioner Family; Visit Provider Nurse Practitioner Family
DX: R10.9 Unspecified abdominal pain (principal)
CPT/HCPCS: 36415; 80053; 83690; 85025

== ENCOUNTER 2024-07-21 02:07 | Outpatient (CLI) | payer OTHER, SELFPAY ==
--- NOTE | 2024-07-21 15:15 | DI.MRI_ITS ---
Exam(s) MR LUMBAR SPINE WO EXAM: MR LUMBAR SPINE WO CLINICAL HISTORY: LOW BACK PAIN,PERSISTENT GENITAL AROUSAL DISCOMFORT,? LUMBAR NERVE INVOLVE. TECHNIQUE: Multiplanar multisequence MRI of the Lumbar spine was performed. COMPARISON: No exams were available for comparison FINDINGS: Bones: The last intervertebral disc space is designated the L5/S1 level for the numbering purpose of this examination. The vertebral body heights are well maintained. Alignment is satisfactory. The si gnal characteristics are unremarkable. Cord: The conus tip ends at the T12 level. It is of normal size and signal intensity. T12-L1: No disc herniations or bulges are present. No central spinal canal or neural foraminal stenos is. L1-2: No disc herniations or bulges are present. No central spinal canal or neural foraminal stenosis . L2-3: No disc herniations or bulges are present. No central spinal canal or neural foraminal stenosis . L3-4: No disc herniations or bulges are present. No central spinal canal or neural foraminal stenosis . L4-5: No disc herniations or bulges are present. No central spinal canal or neural foraminal stenosis . L5-S1: There is a very small diffuse disc bulge. No central spinal canal or neural foraminal stenosi s. Soft tissues: The visualized SI joints and sacrum are well maintained. The paraspinal soft tissues ar e unremarkable. Visualized abdominal organs: There is a small simple cyst in the left kidney. No follow-up is recomm ended. IMPRESSION: No evidence of significant spinal stenosis or neuroforaminal narrowing. DATA REPOSITORY:
== END 2024-07-21 02:27 ==
LOC: DI 02:08
PROVIDERS: PCP Nurse Practitioner Family; Visit Provider Nurse Practitioner Family
DX: M54.50 Low back pain, unspecified (principal); F52.22 Female sexual arousal disorder
CPT/HCPCS: 72148

== ENCOUNTER 2024-08-09 21:24 | Outpatient (REF) | payer OTHER, SELFPAY | END 2024-08-09 21:25 | disposition home or self-care (01) | LOC: LBN 21:24 | PROVIDERS: PCP Nurse Practitioner Family; Visit Provider Nurse Practitioner Family | DX: N89.8 Other specified noninflammatory disorders of vagina (principal); F52.22 Female sexual arousal disorder; M54.50 Low back pain, unspecified | CPT/HCPCS: 87480; 87510; 87660 ==

== ENCOUNTER 2024-08-09 21:42 | Emergency (ER) | payer OTHER, SELFPAY ==
[2024-08-09 21:46] VITALS: BP 133/88; PULSE 86; RESP 15; TEMP 36.7; O2SAT 98
--- NOTE | 2024-08-09 22:04 | NUR.NOTE ---
Nursing Note: Pt presents for teri with her mom. Pt states she has been experiencing genital pressure/arousal all day, every day since January 2024, leg weakness and tingling in lower extremities most days, feels bloated and heavy. She is unable to get comfortable. She has seen primary care for this several times but has not been able to get any answers. Being referred to gynecology at [facility] in October 2024. Pt states she is frustrated and anxious not knowing what is going on with her medically.
--- NOTE | 2024-08-09 22:56 | W.ED.GENAD ---
Discharge Plan Disposition Patient Disposition: Home Condition: Good Discharge Details Clinical Impression: Pain of female genitalia Primary Care Provider: Laura Mayo ED Provider: Ronal Alfredo Home Meds and New Rx's Prescriptions: New amlodipine 5 mg tablet 5 mg PO DAILY Qty: 30 0RF venlafaxine [Effexor XR] 37.5 mg capsule,extended release 24hr 37.5 mg PO DAILY Qty: 60 0RF No Action Mirena 21 mcg/24 hours (8 yrs) 52 mg intrauterine device 1 device IY ONCE Patient Comments: Inserted November 2015 cyclobenzaprine 5 mg tablet 5 mg PO DAILY PRN (Reason: back pain) Qty: 30 0RF Rx Instructions: Take 1-2 tablets at bed time for back pain Discharge Instructions Additional Instructions: At this time there is concern that 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 It is important that you follow-up closely with your specialist at [facility]. However, we have placed a referral with our obstetrics outside plant engineer team here. They will contact you for an appointment time with one of their physician practitioners. In the meantime we will try additional pharmacotherapy. Please take the amlodipine as prescribed. This may cause a slight decrease in your blood pressure, so be cautious if you feel lightheaded or dizzy. Additionally will be starting Effexor to be taken daily to also help diminish some of the symptomatology. Please take these both as prescribed, as your obstetrics outside plant engineer practitioner want to see if these have been effective on their visits. Please continue to pursue counseling and therapy as you have been as the cause of this condition is likely multifactorial and may not be solved simply by medication alone. If you notice any worsening of your symptoms, or any new symptoms such as vomiting, diarrhea, fever, chills, shortness of breath, chest pain, numbness, weakness, or fainting , please return immediately to the emergency department for reevaluation. Please follow up with your primary care provider as soon as possible for reassessment and reevaluation. As always, it was a pleasure participating in your medical care today. Referrals: Lissette Maxwell MD [ [facility] STAFF PHYSICIAN] - Lena Capellan DO [OSTEOPATHIC DOCTOR] - Aicha Watkins MD [ [facility] STAFF PHYSICIAN] - Laura Mayo NP [Primary Care Provider] - HPI General Date/Time Provider Initiated Documentation: 08/09/24 21:43. HPI Narrative: This is a 33-year-old female who presents today for evaluation of genital hyperarousal. Patient states that she has been dealing with this for the past 6 months to a year. Initially it was intermittent, but has now transition to quite consistent on a daily basis and multiple times throughout the day. Patient was on trazodone for short time about a year ago, and that did not seem to be associated with the symptoms. She did begin nightly marijuana use to sleep around a similar time as to when the symptoms first started, but does not feel that they are connected. She has seen Naima Huerta and [facility], as well as ED practitioners here. Her IUD has been changed out in an attempt to help symptoms, she has been given topical lidocaine in an attempt to help symptoms, but has not had any improvement. She states that she has had bacterial vaginosis in the past which when treated did help the symptoms for a little while, but then they came back shortly thereafter. She is , she has had 2 children via . She had an ultrasound on 07/05/2024 which was unremarkable, and an MRI of her lumbar spine which was also unremarkable. She denies any atypical vaginal discharge. She denies any dysuria. She states that when she orgasms it does help the symptoms but sometimes only for a few minutes or a few hours. She did see her primary care provider today and they discussed starting on an SSRI, and a referral was placed to [facility] obstetrics gynecology, with current date in October. Patient presents tonight quite frustrated with her current status, and somewhat despondent about the nature of her symptoms. To me she denies any homicidal or suicidal ideations but states that I just want this to get fixed, what ever it takes! Related Data Home Medications ?Medication ?Instructions ?Recorded ?Confirmed levonorgestrel 21 mcg/24 hr (up to 1 device intrauterine ONCE 03/24/23 08/09/24 8 years) 52 mg intrauterine device (Mirena) amlodipine 5 mg tablet 5 mg PO DAILY #30 tabs 08/09/24 cyclobenzaprine 5 mg tablet 5 mg PO DAILY PRN back pain #30 08/09/24 08/09/24 tabs venlafaxine 37.5 mg 37.5 mg PO DAILY #60 caps 08/09/24 capsule,extended release 24 hr (Effexor XR) Previous Rx's ?Medication ?Instructions ?Recorded amlodipine 5 mg tablet 5 mg PO DAILY #30 tabs 08/09/24 cyclobenzaprine 5 mg tablet 5 mg PO DAILY PRN back pain #30 08/09/24 tabs venlafaxine 37.5 mg 37.5 mg PO DAILY #60 caps 08/09/24 capsule,extended release 24 hr (Effexor XR) Allergies Allergy/AdvReac Type Severity Reaction Status Date / Time No Known Allergies Allergy Verified 08/09/24 21:59 General Stated Complaint: PsychEval DARRYN: 2 Exam Narrative Exam Narrative: 1.Const: Well-nourished, Well-developed, appearing stated age 2.Eyes: PERRL, no conjunctival injection, and symmetrical lids. 3.ENT: Atraumatic external nose and ears. Moist MM. Neck: Symmetric, trachea midline, No thyromegaly. 4.CVS: +S1/S2, Peripheral pulses 2+ and equal in all extremities. Brisk capillary refill in all extremities. 5.RESP: Unlabored respiratory effort. Clear to auscultation bilaterally. No wheezes rales or rhonchi 6.GI: Soft, Nontender/Nondistended, No hepatosplenomegaly. No guarding or rebound. Genital exam was performed with female nurse Annalisa at bedside. Normal female genitalia, no redness swelling drainage or discharge. 7.MSK: Normocephalic/Atraumatic, Extremities w/o deformity or ttp No cyanosis or clubbing, Normal movement of all extremities 8.Skin: Warm, Dry. No rashes or lesions. 9.Neuro: electronic scale tester II-XII grossly intact. Sensation grossly intact, no focal neurologic deficits. 10.Psych: (AAO) x3. Appropriate mood and affect Course Vital Signs Vital signs: Vital Signs Temperature 36.7 C 08/09/24 21:46 Pulse 86 08/09/24 21:46 Respiratory Rate 15 08/09/24 21:46 Blood Pressure 133/88 08/09/24 21:46 Pulse Oximetry 98 08/09/24 21:46 Temperature 36.7 C 08/09/24 21:46 Pulse 86 08/09/24 21:46 Respiratory Rate 15 08/09/24 21:46 Blood Pressure 133/88 08/09/24 21:46 Blood Pressure Position Sitting 08/09/24 21:46 Pulse Oximetry 98 08/09/24 21:46 Oxygen Delivery Method Room Air 08/09/24 21:46 Oxygen Flow Rate 0 08/09/24 21:46 Medical Decision Making This is a 33-year-old female who presents today for evaluation of genital hyperarousal. Patient states that she has been dealing with this for the past 6 months to a year. Initially it was intermittent, but has now transition to quite consistent on a daily basis and multiple times throughout the day. Patient was on trazodone for short time about a year ago, and that did not seem to be associated with the symptoms. She did begin nightly marijuana use to sleep around a similar time as to when the symptoms first started, but does not feel that they are connected. She has seen Naima Huerta and [facility], as well as ED practitioners here. Her IUD has been changed out in an attempt to help symptoms, she has been given topical lidocaine in an attempt to help symptoms, but has not had any improvement. She states that she has had bacterial vaginosis in the past which when treated did help the symptoms for a little while, but then they came back shortly thereafter. She is , she has had 2 children via . She had an ultrasound on 07/05/2024 which was unremarkable, and an MRI of her lumbar spine which was also unremarkable. She denies any atypical vaginal discharge. She denies any dysuria. She states that when she orgasms it does help the symptoms but sometimes only for a few minutes or a few hours. She did see her primary care provider today and they discussed starting on an SSRI, and a referral was placed to [facility] obstetrics gynecology, with current date in October. Patient presents tonight quite frustrated with her current status, and somewhat despondent about the nature of her symptoms. To me she denies any homicidal or suicidal ideations but states that I just want this to get fixed, what ever it takes! Physical exam his reassuring and unremarkable. Review of ultrasonography and MRI show no significant abnormality. Concern for genital high for arousal syndrome. No evidence of significant neurovascular compromise otherwise on exam. I did contact obstetrics gynecology Dr. Capellan, and discussed the case with her. She feels that there may be some potential benefit from calcium channel darby administration as there may be a component of a Raynaud's-like phenomena. We will start her at low-dose 5 mg/day of amlodipine. Additionally we will start the patient on Effexor 37.5 mg daily to help with components of hyperarousal, but also to help with her current status of elevated mood and anxiety. We will place referral for obstetrics gynecology follow-up with OB physician practitioners. I have encouraged the patient to continue her counseling as there may certainly be a psychosocial component to the overall clinical picture. No other life-threatening process identified at this time. Patient agrees with plan. I have extensively reviewed the treatment plan and discharge instructions with the patient and their family. I have addressed all patient concerns at this time. The patient and family was made aware of what symptoms to monitor for that would warrant a return to the emergency department. Discussed the plan with the patient and family, they demonstrate verbal understanding and agreement with our assessment and plan at this time. The documentation in this chart was dictated using [employer] dictation software. Please excuse any dictation errors. 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) Lateral epicondylitis, right elbow (Acute) Low back pain (Acute) Yeast vaginitis (Acute) Scalp lesion (Acute) Obesity (BMI 30-39.9) (Acute) IUD surveillance (Acute 02/03/24) Mirena Vocal cord polyp (Acute) Hoarseness of voice (Acute) GERD (gastroesophageal reflux disease) (Chronic) Skin mole (Acute) scalp Insomnia (Acute) Tobacco use disorder (Acute) 2021- 05/29- 1/ PPD x 10 years Depression (Chronic) Anxiety (Acute 04/30/14) Surgical History History of laryngoscopy Microlaryngoscopy with excision of left vocal cord mass 08/26/2022 History of hernia repair Previous section (03/30/15) Family History Mother Essential hypertension Mental disorder Breast cancer Father Hyperlipidemia Sister No problems noted. Son Depression Daughter No problems noted. Social History Smoking/Tobacco Use Status: Former Tobacco Use tobacco type: cigarettes Quit Date: 06/26/23 Tobacco: How many years used: 10 Quit status: has quit before Second Hand Exposure: Yes Smoking risk assessment performed?: Yes Alcohol Intake: current Alcohol Intake frequency: holidays/special occasions only Alcohol type: beer Drug use: Daily Substance use type: marijuana Details: smokes nightly for sleep 08/09/24 Caregiver/Support person: No Household members: spouse and children Housing: house Communication Needs: None Do you need help understanding health information?: Never Pets and animals: Yes Pets and animals: cat(s) Sexually active: Yes Do you think of yourself as: straight/heterosexual Current gender identity: female What is your relationship status?: How often do you talk on the phone with friends or family?: three or more times per week How often do you get together with friends or relatives?: once per week How often do you attend latter-day or cheondoism services?: decline to answer Do you belong to any clubs or organized social groups?: no Panel score (0-1 are the most socially isolated patients): 2 What type of physical activity do you participate in: none Duration: 15-30 minutes/day Frequency: does not exercise Felicita/Bahai: No preference Special felicita needs: No Seatbelt use: always Helmet use: Yes Helmet use: sometimes Drive intox or ride w/intox furniture delivery driver: No Do you feel safe at home: Yes Do you feel safe in your relationship?: Yes Female Reproductive History Menstrual control method: progestin IUCD History History 2 Para 2 Hx # Term Pregnancies Multiple births Hx # Pregnancies Ectopic pregnancies AB induced Hx Number of Living Children AB spontaneous
== END 2024-08-09 23:15 | disposition home or self-care (01) ==
PROVIDERS: Emergency Provider Student in an Organized Health Care Education/Training Program; PCP Nurse Practitioner Family
DX: N94.9 Unspecified condition associated with female genital organs and menstrual cycle (principal)
CPT/HCPCS: 99283